=== PATIENT | male | born 1945 | race Caucasian/White ===

== ENCOUNTER → 2016-10-31 | Outpatient (CLI) | payer MEDICARE ==
--- NOTE | 2016-11-01 07:36 | ECHOF ---
Referral Reason:AFib I48.91 MEASUREMENTS -------- HEIGHT: 182.9 cm WEIGHT: 113.4 kg BP: 135/81 RVIDd: 2.9 cm (< 3.3) IVSd: 1.4 cm (0.6 - 1.1) LVIDd: 5.7 cm (3.9 - 5.3) LVPWd: 1.5 cm (0.6 - 1.1) IVSs: 1.8 cm LVIDs: 4.3 cm LVPWs: 2.1 cm LAESV Index (A-L): 49.40 ml/m Ao Diam: 3.7 cm (2.0 - 3.7) AV Cusp: 2.7 cm (1.5 - 2.6) LA Diam: 4.1 cm (2.7 - 3.8) MV EXCURSION: 22.646 mm (> 18.000) MV EF SLOPE: 128 mm/s (70 - 150) EPSS: 0.6 cm AR PHT: 365 ms RAP: 5.00 mmHg RVSP: 19.22 mmHg FINDINGS -------- Atrial fibrillation. This was a technically adequate study. There is moderate concentric left ventricular hypertrophy. Overall left ventricular systolic function is normal with, an EF between 60 - 65 %. Septal wall motion is delayed, and consistent with conduction delay/bundle branch block. The right ventricle is normal in size and function. LA is severely dilated >40 ml/m2 RA appears enlarged. There is mild aortic valve sclerosis. There is mild aortic regurgitation. There is no evidence of aortic stenosis. Mild mitral annular calcification present. There is trace to mild mitral regurgitation. Trace tricuspid regurgitation present. There is no evidence of pulmonary hypertension. The right ventricular systolic pressure, as measured by Doppler, is 19.22mmHg. Trace/mild (physiologic) pulmonic regurgitation. The aortic root size is normal. There is no pericardial effusion. CONCLUSIONS -------- 1. Atrial fibrillation. 2. There is trace to mild mitral regurgitation. 3. Trace tricuspid regurgitation present. 4. There is no evidence of pulmonary hypertension. 5. The right ventricular systolic pressure, as measured by Doppler, is 19.22mmHg. 6. Trace/mild (physiologic) pulmonic regurgitation. 7. The aortic root size is normal. 8. There is no pericardial effusion. 9. There is moderate concentric left ventricular hypertrophy. 10. Overall left ventricular systolic function is normal with, an EF between 60 - 65 %. 11. Septal wall motion is delayed, and consistent with conduction delay/bundle branch block. 12. LA is severely dilated >40 ml/m2 13. RA appears enlarged. 14. There is mild aortic valve sclerosis. 15. There is mild aortic regurgitation. 16. Mild mitral annular calcification present. DECORATING CONSULTANT: Mary Garcia RDCS
== END | disposition home or self-care (01) ==
LOC: RADECHMAIN 11:16
PROVIDERS: ATTEND Family Medicine
DX: I48.91 Unspecified atrial fibrillation (principal); I51.7 Cardiomegaly
CPT/HCPCS: 93306

== ENCOUNTER 2016-12-06 10:51 | Day surgery (SDC) | payer MEDICARE ==
[2016-12-01 15:27] VITALS: BMI 35.2
[~2016-12-06 10:51] MED LIST: BENZOCAINE SPRAY 100 APPLIC/CAN ONE; HYDROmorphone 1 MG/ML 1 ML SYRINGE IVP PRN; LACTATED RINGERS 1,000 ML IV SCH; LIDOCAINE 1% 20 ML VIAL (10MG/ML) FOR IV START INTRADERMA PRN; MIDAZOLAM 2 MG/2 ML VIAL IV PRN; ONDANSETRON 4 MG/2 ML VIAL IVP ONE; SODIUM CHLORIDE 0.9% 1,000 ML IV SCH
[2016-12-06 11:21] VITALS: RESP 16; TEMP 97.6
[2016-12-06] MEDS ORDERED: SODIUM CHLORIDE 0.9% 1,000 ML IV ONE (11:21)
[2016-12-06 11:34] LABS: Basophils % (A) 0 %; CH 32.7; CHCM 33.6; Eosinophils # (A) 0.1 k/uL (0-0.7); Eosinophils % (A) 2 %; HCT 48.8 % (39.0-53.0); HDW 2.52; HGB 15.9 gm/dL (13.0-17.5); Luc # (Auto) 0.19; Luc % (Auto) 3; Lymphocytes # (A) 1.5 k/uL (1.0-4.8); Lymphocytes % (A) 23 %; MCHC 32.7 g/dL (31.0-37.0); MCV 97.9 fL (80.0-100.0); Mean Platelet Volume 8.6; Monocytes # (A) 0.3 k/uL (0-1.0); Monocytes % (A) 5 %; Neutrophils # (A) 4.3 k/uL (1.3-7.7); Neutrophils % (A) 66 %; RBC 4.98 m/uL (4.30-5.90); RDW 14.1 % (11.5-15.5); WBC 6.5 k/uL (3.8-10.6); WBC (Perox) 6.06
[2016-12-06] MEDS ORDERED: LIDOCAINE 1% INJ 10MG/ML (20 ML MDV) ONE (12:00)
[2016-12-06] MEDS ORDERED: PROPOFOL 10 MG/ML 20 ML VIAL IV ONE (12:00)
[2016-12-06] MEDS ORDERED: BENZOCAINE SPRAY 100 APPLIC/CAN MUCOUS MEM ONE (12:02)
[2016-12-06 12:03] LABS: Basophils % (A) 0 %; CH 32.7; CHCM 33.2; Eosinophils # (A) 0.1 k/uL (0-0.7); Eosinophils % (A) 2 %; HDW 2.48; HGB 15.3 gm/dL (13.0-17.5); Luc # (Auto) 0.14; Luc % (Auto) 2; Lymphocytes # (A) 1.4 k/uL (1.0-4.8); Lymphocytes % (A) 24 %; MCH 32.2 pg (25.0-35.0); MCHC 32.5 g/dL (31.0-37.0); Mean Platelet Volume 8.6; Monocytes # (A) 0.3 k/uL (0-1.0); Monocytes % (A) 5 %; Neutrophils # (A) 4.1 k/uL (1.3-7.7); Neutrophils % (A) 67 %; RBC 4.75 m/uL (4.30-5.90); RDW 14.1 % (11.5-15.5); WBC (Perox) 5.84
[2016-12-06 12:20] LABS: Anion Gap 10 mmol/L; Blood Urea Nitrogen 16 mg/dL (9-20); Calcium 8.9 mg/dL (8.4-10.2); Carbon Dioxide 22 mmol/L (22-30); Chloride 109 mmol/L (98-107); Glucose 93 mg/dL (74-99); Non-African American GFR(MDRD) >60 (>60 ml/min/1.73 sqM); Potassium 4.5 mmol/L (3.5-5.1); Sodium 141 mmol/L (137-145)
[2016-12-06] MEDS ORDERED: LISINOPRIL 5 MG TAB PO SCH (12:30)
[2016-12-06] MEDS ORDERED: DEXTROSE 5% IN WATER 100 ML with AMIODARONE 150 MG IV ONE (12:45)
[2016-12-06] MEDS ORDERED: AMIODARONE 450 MG in DEXTROSE 5% IN WATER 250 ML IV SCH ×2 (13:00)
--- NOTE | 2016-12-06 13:09 | ECHOT ---
DATE OF SERVICE: Patient was given intravenous sedation with propofol by nurse educational aide and transesophageal echocardiogram was performed without any complications. FINDINGS: Left ventricular chamber is normal in size with mild to moderately impaired left ventricular systolic function. Aortic, mitral and tricuspid valve morphologies normal. There was evidence of mild degree of mitral and aortic regurgitation. Left atrium is mildly enlarged. There was evidence of smoke in the left atrium. Left atrial appendage was normal. There was no evidence of thrombus. There is evidence of small PFO with small [id number] shunt by saline contrast study. FINAL IMPRESSION: 1. There is no evidence of thrombus in the left atrium or atrial appendage. 2. Left ventricular systolic function is mildly impaired. 3. There is evidence of mild degree of mitral and tricuspid regurgitation. 4. There is evidence of small patent foramen ovale with a small [id number] shunt. RECOMMENDATIONS: Proceed with cardioversion.
--- NOTE | 2016-12-06 13:11 | CE ---
DATE OF SERVICE: PROCEDURE: CARDIOVERSION PREOPERATIVE DIAGNOSIS: Atrial fibrillation. POSTOPERATIVE DIAGNOSIS: Atrial fibrillation. The patient was given intravenous sedation with Propofol and cardioversion was performed in synchronous mode with 200 joules. Patient was converted to the normal sinus rhythm. Tolerated the procedure well. The patient will be given IV amiodarone infusion for 6 hours and then we will keep the patient on oral amiodarone to keep him in a normal sinus rhythm.
[2016-12-06] MEDS ORDERED: AMIODARONE 200 MG TAB PO SCH (16:00)
[2016-12-06 18:58] VITALS: BP 121/82; PULSE 57
== END 2016-12-07 00:30 | disposition home or self-care (01) ==
LOC: CATHCVL 10:51 → 6SEL 12:20 → CATHCVL 12-07 00:30
PROVIDERS: ATTEND Internal Medicine Cardiovascular Disease
DX: I48.1 Persistent atrial fibrillation (principal); I10 Essential (primary) hypertension; R00.1 Bradycardia, unspecified; I44.0 Atrioventricular block, first degree; R94.31 Abnormal electrocardiogram [ECG] [EKG]; Z79.01 Long term (current) use of anticoagulants; Z79.899 Other long term (current) drug therapy; Z87.891 Personal history of nicotine dependence
CPT/HCPCS: 93312; 93320; 93005; 93325; 92960; 80048; 85025; J0282 ×2; J2001; J2704

== ENCOUNTER 2016-12-10 12:04 | Emergency (ER) | payer MEDICARE ==
[2016-12-10] MEDS ORDERED: SODIUM CHLORIDE 0.9% 1,000 ML IV STA (12:56)
--- NOTE | 2016-12-10 13:00 | ED ---
SOB HPI - General Chief Complaint: Shortness of Breath Stated Complaint: POSS MEDICATION REACTION Time Seen by Provider: 12/10/16 12:46 Source: patient, family, RN notes reviewed Mode of arrival: ambulatory Limitations: no limitations - History of Present Illness Initial Comments: This is a 71-year-old male with a history of a cardioversion 4 days ago who presents with complaints of shortness of breath abdominal bloating and a cough since his occurred. He also states he started amiodarone and lisinopril of the same time. He relates the symptoms starting since Medications. No fevers chills nausea vomiting sweats or other symptoms MD Complaint: shortness of breath, cough - Related Data Home Medications Medication Instructions Recorded Confirmed Calcium Carbonate [Calcium] 600 mg PO DAILY 12/01/16 12/10/16 Flaxseed Oil [Hazel-3 Flaxseed Oil] 1,000 mg PO DAILY 12/01/16 12/10/16 Multivitamins, Thera [Multivitamin 1 tab PO DAILY 12/01/16 12/10/16 (formulary)] Hazel-3 Fatty Acids/Fish Oil [Fish 1 cap PO DAILY 12/01/16 12/10/16 Oil 1,000 mg Capsule] Previous Rx's Medication Instructions Recorded Amiodarone [Cordarone] 200 mg PO TID #100 tab 12/06/16 Apixaban [Eliquis] 5 mg PO BID #180 12/06/16 Lisinopril [Zestril] 5 mg PO DAILY #50 tab 12/06/16 Metoprolol Tartrate [Lopressor] 50 mg PO BID #180 12/06/16 Furosemide [Lasix] 10 mg PO DAILY #7 tab 12/10/16 Losartan [Cozaar] 50 mg PO DAILY #30 tab 12/10/16 Potassium Chloride ER [K-Dur 10] 10 meq PO DAILY #7 tab 12/10/16 Allergies Allergy/AdvReac Type Severity Reaction Status Date / Time No Known Allergies Allergy Verified 12/10/16 13:01 Review of Systems ROS Statement: Those systems with pertinent positive or pertinent negative responses have been documented in the HPI. ROS Other: All systems not noted in ROS Statement are negative. Past Medical History Past Medical History: Atrial Fibrillation Additional Past Medical History / Comment(s): states arrythmia History of Any Multi-Drug Resistant Organisms: None Reported Additional Past Surgical History / Comment(s): "RUPTURED UMBILICUS", CIRCUMCISION ADULT Past Anesthesia/Blood Transfusion Reactions: No Reported Reaction Past Psychological History: No Psychological Hx Reported Smoking Status: Never smoker Past Alcohol Use History: None Reported Past Drug Use History: None Reported - Past Family History Mother Family Medical History: No Reported History General Exam - General Exam Comments Initial Comments: Physical well-developed well-nourished awake alert oriented 3 male Limitations: no limitations General appearance: alert, in no apparent distress Head exam: Present: atraumatic, normocephalic, normal inspection Eye exam: Present: normal appearance, PERRL, EOMI. Absent: scleral icterus, conjunctival injection, periorbital swelling ENT exam: Present: normal exam, mucous membranes moist Neck exam: Present: normal inspection. Absent: tenderness, meningismus, lymphadenopathy Respiratory exam: Present: normal lung sounds bilaterally. Absent: respiratory distress, wheezes, rales, rhonchi, stridor Cardiovascular Exam: Present: normal rhythm, bradycardia, normal heart sounds. Absent: systolic murmur, diastolic murmur, rubs, gallop, clicks GI/Abdominal exam: Present: soft, normal bowel sounds. Absent: distended, tenderness, guarding, rebound, rigid Extremities exam: Present: normal inspection, full ROM, normal capillary refill. Absent: tenderness, pedal edema, joint swelling, calf tenderness Back exam: Present: normal inspection Neurological exam: Present: alert, oriented X3, CN II-XII intact Psychiatric exam: Present: normal affect, normal mood Skin exam: Present: warm, dry, intact, normal color. Absent: rash Course Vital Signs 12/10/16 12/10/16 12/10/16 12:31 15:45 16:15 Temperature 99.5 F Pulse Rate 54 L 60 56 L Respiratory 20 18 18 Rate Blood Pressure 163/76 148/67 160/75 O2 Sat by Pulse 98 96 97 Oximetry 12/10/16 16:37 Temperature Pulse Rate 53 L Respiratory 18 Rate Blood Pressure 137/60 O2 Sat by Pulse 96 Oximetry Medical Decision Making - Medical Decision Making Patient states was discussed with cardiology, Dr Stafford the patient was given IV Lasix and did improve markedly is no more shortness of breath. He'll be taken off his BRENT inhibitor placed on Cozaar. He is a follow-up with cardiology tomorrow. He is return if any issues or problems wall. We had a long discussion. - Lab Data Result diagrams: 12/10/16 13:28 12/10/16 13:28 Lab Results 12/10/16 12/10/16 12/10/16 Range/Units 13:28 13:28 13:28 WBC 9.8 (3.8-10.6) k/uL RBC 4.48 (4.30-5.90) m/uL Hgb 14.5 (13.0-17.5) gm/dL Hct 44.1 (39.0-53.0) % MCV 98.4 (80.0-100.0) fL MCH 32.4 (25.0-35.0) pg MCHC 32.9 (31.0-37.0) g/dL RDW 14.2 (11.5-15.5) % Plt Count 109 L (150-450) k/uL Neutrophils % 81 % Lymphocytes % 10 % Monocytes % 5 % Eosinophils % 2 % Basophils % 0 % Neutrophils # 8.0 H (1.3-7.7) k/uL Lymphocytes # 1.0 (1.0-4.8) k/uL Monocytes # 0.5 (0-1.0) k/uL Eosinophils # 0.2 (0-0.7) k/uL Basophils # 0.0 (0-0.2) k/uL PT (9.0-12.0) sec INR (<1.1) APTT (22.0-30.0) sec Sodium 142 (137-145) mmol/L Potassium 4.4 (3.5-5.1) mmol/L Chloride 109 H (98-107) mmol/L Carbon Dioxide 25 (22-30) mmol/L Anion Gap 8 mmol/L BUN 15 (9-20) mg/dL Creatinine 1.00 (0.66-1.25) mg/dL Est GFR (MDRD) Af Amer >60 (>60 ml/min/1.73 sqM) Est GFR (MDRD) Non-Af >60 (>60 ml/min/1.73 sqM) Glucose 91 (74-99) mg/dL Calcium 9.3 (8.4-10.2) mg/dL Magnesium 1.9 (1.6-2.3) mg/dL Total Bilirubin 1.1 (0.2-1.3) mg/dL AST 41 (17-59) U/L ALT 55 (21-72) U/L Alkaline Phosphatase 57 (38-126) U/L Total Creatine Kinase 237 H (55-170) U/L CK-MB (CK-2) 3.3 H* (0.0-2.4) ng/mL CK-MB (CK-2) Rel Index 1.4 Troponin I 0.041 H* (0.000-0.034) ng/mL NT-Pro-B Natriuret Pep pg/mL Total Protein 6.6 (6.3-8.2) g/dL Albumin 3.7 (3.5-5.0) g/dL 12/10/16 12/10/16 Range/Units 13:28 13:28 WBC (3.8-10.6) k/uL RBC (4.30-5.90) m/uL Hgb (13.0-17.5) gm/dL Hct (39.0-53.0) % MCV (80.0-100.0) fL MCH (25.0-35.0) pg MCHC (31.0-37.0) g/dL RDW (11.5-15.5) % Plt Count (150-450) k/uL Neutrophils % % Lymphocytes % % Monocytes % % Eosinophils % % Basophils % % Neutrophils # (1.3-7.7) k/uL Lymphocytes # (1.0-4.8) k/uL Monocytes # (0-1.0) k/uL Eosinophils # (0-0.7) k/uL Basophils # (0-0.2) k/uL PT 11.0 (9.0-12.0) sec INR 1.1 (<1.1) APTT 26.6 (22.0-30.0) sec Sodium (137-145) mmol/L Potassium (3.5-5.1) mmol/L Chloride (98-107) mmol/L Carbon Dioxide (22-30) mmol/L Anion Gap mmol/L BUN (9-20) mg/dL Creatinine (0.66-1.25) mg/dL Est GFR (MDRD) Af Amer (>60 ml/min/1.73 sqM) Est GFR (MDRD) Non-Af (>60 ml/min/1.73 sqM) Glucose (74-99) mg/dL Calcium (8.4-10.2) mg/dL Magnesium (1.6-2.3) mg/dL Total Bilirubin (0.2-1.3) mg/dL AST (17-59) U/L ALT (21-72) U/L Alkaline Phosphatase (38-126) U/L Total Creatine Kinase (55-170) U/L CK-MB (CK-2) (0.0-2.4) ng/mL CK-MB (CK-2) Rel Index Troponin I (0.000-0.034) ng/mL NT-Pro-B Natriuret Pep 1600 pg/mL Total Protein (6.3-8.2) g/dL Albumin (3.5-5.0) g/dL - EKG Data -: EKG Interpreted by Me EKG shows normal: sinus rhythm Rate: bradycardia (Sinus rhythm rate of 54. To 16 QRS 98 daily since QTC of 446 /422 prescribed AV block posterior inferior changes nonspecific) - Radiology Data Radiology results: report reviewed (I did review the imaging and report or some evidence of some mild CHF.), image reviewed Disposition Clinical Impression: Fluid retention, Adverse reaction to BRENT inhibitor drug, Congestive heart failure Disposition: HOME SELF-CARE Condition: Good Additional Instructions: Stop the lisinopril Prescriptions: Furosemide [Lasix] 10 mg PO DAILY #7 tab Losartan [Cozaar] 50 mg PO DAILY #30 tab Potassium Chloride ER [K-Dur 10] 10 meq PO DAILY #7 tab Referrals: Noah Little MD [Primary Care Provider] - 1-2 days Elly Pinzon MD [STAFF PHYSICIAN] - 1-2 days
[2016-12-10 13:45] LABS: Basophils % (A) 0 %; CH 32.5; CHCM 33.2; Eosinophils # (A) 0.2 k/uL (0-0.7); Eosinophils % (A) 2 %; HCT 44.1 % (39.0-53.0); HDW 2.45; HGB 14.5 gm/dL (13.0-17.5); Luc # (Auto) 0.21; Luc % (Auto) 2; Lymphocytes % (A) 10 %; MCH 32.4 pg (25.0-35.0); MCHC 32.9 g/dL (31.0-37.0); MCV 98.4 fL (80.0-100.0); Mean Platelet Volume 8.7; Monocytes # (A) 0.5 k/uL (0-1.0); Monocytes % (A) 5 %; Neutrophils % (A) 81 %; RBC 4.48 m/uL (4.30-5.90); RDW 14.2 % (11.5-15.5); WBC 9.8 k/uL (3.8-10.6); WBC (Perox) 9.25
--- NOTE | 2016-12-10 13:55 | XR ---
EXAMINATION TYPE: XR chest 2V DATE OF EXAM: 12/10/2016 COMPARISON: NONE HISTORY: Difficulty breathing TECHNIQUE: Frontal and lateral views of the chest are obtained. FINDINGS: The heart is enlarged. There are overlying cardiac leads. Interstitium is increased. Perih ilar increased density is noted. No evident pneumothorax or pleural effusion. IMPRESSION: Correlate for congestive heart failure. Follow-up recommended.
[2016-12-10 13:58] LABS: ALT 55 U/L (21-72); AST 41 U/L (17-59); Alkaline Phosphatase 57 U/L (38-126); Anion Gap 8 mmol/L; Blood Urea Nitrogen 15 mg/dL (9-20); Calcium 9.3 mg/dL (8.4-10.2); Carbon Dioxide 25 mmol/L (22-30); Chloride 109 mmol/L (98-107); Glucose 91 mg/dL (74-99); Magnesium 1.9 mg/dL (1.6-2.3); Non-African American GFR(MDRD) >60 (>60 ml/min/1.73 sqM); Potassium 4.4 mmol/L (3.5-5.1); Sodium 142 mmol/L (137-145); Total Bilirubin 1.1 mg/dL (0.2-1.3); Total Protein 6.6 g/dL (6.3-8.2)
[2016-12-10 14:08] LABS: INR 1.1 (<1.1); Partial Thromboplastin Time 26.6 sec (22.0-30.0)
[2016-12-10 14:28] LABS: Creatine Kinase MB 3.3 ng/mL (0.0-2.4)
[2016-12-10 14:29] LABS: Troponin I 0.041 ng/mL (0.000-0.034)
[2016-12-10] MEDS ORDERED: FUROSEMIDE 10 MG/ML 4 ML VIAL IV STA (15:39)
--- NOTE | 2016-12-10 16:51 | ED ---
Medical Decision Making - Lab Data Result diagrams: 12/10/16 13:28 12/10/16 13:28 Lab Results 12/10/16 12/10/16 12/10/16 Range/Units 13:28 13:28 13:28 WBC 9.8 (3.8-10.6) k/uL RBC 4.48 (4.30-5.90) m/uL Hgb 14.5 (13.0-17.5) gm/dL Hct 44.1 (39.0-53.0) % MCV 98.4 (80.0-100.0) fL MCH 32.4 (25.0-35.0) pg MCHC 32.9 (31.0-37.0) g/dL RDW 14.2 (11.5-15.5) % Plt Count 109 L (150-450) k/uL Neutrophils % 81 % Lymphocytes % 10 % Monocytes % 5 % Eosinophils % 2 % Basophils % 0 % Neutrophils # 8.0 H (1.3-7.7) k/uL Lymphocytes # 1.0 (1.0-4.8) k/uL Monocytes # 0.5 (0-1.0) k/uL Eosinophils # 0.2 (0-0.7) k/uL Basophils # 0.0 (0-0.2) k/uL PT (9.0-12.0) sec INR (<1.1) APTT (22.0-30.0) sec Sodium 142 (137-145) mmol/L Potassium 4.4 (3.5-5.1) mmol/L Chloride 109 H (98-107) mmol/L Carbon Dioxide 25 (22-30) mmol/L Anion Gap 8 mmol/L BUN 15 (9-20) mg/dL Creatinine 1.00 (0.66-1.25) mg/dL Est GFR (MDRD) Af Amer >60 (>60 ml/min/1.73 sqM) Est GFR (MDRD) Non-Af >60 (>60 ml/min/1.73 sqM) Glucose 91 (74-99) mg/dL Calcium 9.3 (8.4-10.2) mg/dL Magnesium 1.9 (1.6-2.3) mg/dL Total Bilirubin 1.1 (0.2-1.3) mg/dL AST 41 (17-59) U/L ALT 55 (21-72) U/L Alkaline Phosphatase 57 (38-126) U/L Total Creatine Kinase 237 H (55-170) U/L CK-MB (CK-2) 3.3 H* (0.0-2.4) ng/mL CK-MB (CK-2) Rel Index 1.4 Troponin I 0.041 H* (0.000-0.034) ng/mL NT-Pro-B Natriuret Pep pg/mL Total Protein 6.6 (6.3-8.2) g/dL Albumin 3.7 (3.5-5.0) g/dL 12/10/16 12/10/16 Range/Units 13:28 13:28 WBC (3.8-10.6) k/uL RBC (4.30-5.90) m/uL Hgb (13.0-17.5) gm/dL Hct (39.0-53.0) % MCV (80.0-100.0) fL MCH (25.0-35.0) pg MCHC (31.0-37.0) g/dL RDW (11.5-15.5) % Plt Count (150-450) k/uL Neutrophils % % Lymphocytes % % Monocytes % % Eosinophils % % Basophils % % Neutrophils # (1.3-7.7) k/uL Lymphocytes # (1.0-4.8) k/uL Monocytes # (0-1.0) k/uL Eosinophils # (0-0.7) k/uL Basophils # (0-0.2) k/uL PT 11.0 (9.0-12.0) sec INR 1.1 (<1.1) APTT 26.6 (22.0-30.0) sec Sodium (137-145) mmol/L Potassium (3.5-5.1) mmol/L Chloride (98-107) mmol/L Carbon Dioxide (22-30) mmol/L Anion Gap mmol/L BUN (9-20) mg/dL Creatinine (0.66-1.25) mg/dL Est GFR (MDRD) Af Amer (>60 ml/min/1.73 sqM) Est GFR (MDRD) Non-Af (>60 ml/min/1.73 sqM) Glucose (74-99) mg/dL Calcium (8.4-10.2) mg/dL Magnesium (1.6-2.3) mg/dL Total Bilirubin (0.2-1.3) mg/dL AST (17-59) U/L ALT (21-72) U/L Alkaline Phosphatase (38-126) U/L Total Creatine Kinase (55-170) U/L CK-MB (CK-2) (0.0-2.4) ng/mL CK-MB (CK-2) Rel Index Troponin I (0.000-0.034) ng/mL NT-Pro-B Natriuret Pep 1600 pg/mL Total Protein (6.3-8.2) g/dL Albumin (3.5-5.0) g/dL Disposition Clinical Impression: Fluid retention, Adverse reaction to BRENT inhibitor drug, Congestive heart failure Disposition: HOME SELF-CARE Condition: Good Instructions: Heart Failure (ED) Additional Instructions: Stop the lisinopril Prescriptions: Furosemide [Lasix] 10 mg PO DAILY #7 tab Losartan [Cozaar] 50 mg PO DAILY #30 tab Potassium Chloride ER [K-Dur 10] 10 meq PO DAILY #7 tab Referrals: Noah Little MD [Primary Care Provider] - 1-2 days Elly Pinzon MD [STAFF PHYSICIAN] - 1-2 days
[2016-12-10 17:11] VITALS: BP 141/68; PULSE 57; RESP 16; TEMP 98.7
== END 2016-12-10 17:11 | disposition home or self-care (01) ==
LOC: EC 12:04
DX: I50.9 Heart failure, unspecified (principal); R60.9 Edema, unspecified; T46.4X5A Adverse effect of angiotensin-converting-enzyme inhibitors, initial encounter; I44.30 Unspecified atrioventricular block; R14.0 Abdominal distension (gaseous); Z79.899 Other long term (current) drug therapy
CPT/HCPCS: 51798; 36415; 93005; 83880; 80053; 82550; 82553; 83735; 84484; 85025; 85610; 85730; 71020; 99285; 96374; 96361 ×3; J1940

== ENCOUNTER 2017-01-11 10:51 | Day surgery (SDC) | payer MEDICARE ==
[2017-01-08 16:06] VITALS: BMI 33.9
[~2017-01-11 10:51] MED LIST changes: +ALPRAZolam 0.25 MG TAB PO PRN; +ALPRAZolam 0.5 MG TAB PO PRN; +ASPIRIN 325 MG TAB PO STA; +ATORVASTATIN 80 MG TAB PO STA; -BENZOCAINE SPRAY 100 APPLIC/CAN ONE; -HYDROmorphone 1 MG/ML 1 ML SYRINGE IVP PRN; -LACTATED RINGERS 1,000 ML IV SCH; -LIDOCAINE 1% 20 ML VIAL (10MG/ML) FOR IV START INTRADERMA PRN; -MIDAZOLAM 2 MG/2 ML VIAL IV PRN; +NITROGLYCERIN SL TABS 0.4 MG TAB SUBLINGUAL PRN; -ONDANSETRON 4 MG/2 ML VIAL IVP ONE; -SODIUM CHLORIDE 0.9% 1,000 ML IV SCH; +SODIUM CHLORIDE 0.9% 1,000 ML in EMPTY BAG 1 BAG IV ONE
[2017-01-11 12:09] LABS: Basophils % (A) 1 %; CH 32.6; CHCM 33.7; Eosinophils # (A) 0.2 k/uL (0-0.7); Eosinophils % (A) 2 %; HDW 2.53; HGB 15.6 gm/dL (13.0-17.5); Luc # (Auto) 0.14; Luc % (Auto) 2; Lymphocytes # (A) 1.4 k/uL (1.0-4.8); Lymphocytes % (A) 22 %; MCH 32.2 pg (25.0-35.0); MCHC 33.2 g/dL (31.0-37.0); MCV 97.2 fL (80.0-100.0); Mean Platelet Volume 9.5; Monocytes # (A) 0.5 k/uL (0-1.0); Monocytes % (A) 7 %; Neutrophils # (A) 4.4 k/uL (1.3-7.7); Neutrophils % (A) 66 %; RBC 4.84 m/uL (4.30-5.90); RDW 14.9 % (11.5-15.5); WBC 6.6 k/uL (3.8-10.6); WBC (Perox) 6.29
[2017-01-11 12:17] LABS: Anion Gap 7 mmol/L; Blood Urea Nitrogen 19 mg/dL (9-20); Calcium 9.2 mg/dL (8.4-10.2); Carbon Dioxide 23 mmol/L (22-30); Chloride 110 mmol/L (98-107); Glucose 83 mg/dL (74-99); Non-African American GFR(MDRD) >60 (>60 ml/min/1.73 sqM); Sodium 140 mmol/L (137-145)
[2017-01-11] MEDS ORDERED: IV FLUID CONTINUATION 800 ML IV ONE (17:35)
[2017-01-11] MEDS ORDERED: LIDOCAINE 2% INJ 20 MG/ML (20 ML MDV) ONE (17:40)
[2017-01-11] MEDS ORDERED: VERAPAMIL 2.5 MG/ML 2 ML AMP ONE (17:41)
[2017-01-11] MEDS: MIDAZOLAM 2 MG/2 ML VIAL IV ONE ×2 (17:57→18:08)
[2017-01-11] MEDS ORDERED: diphenhydrAMINE 50 MG/ML 1 ML VIAL IVP ONE (17:59)
[2017-01-11] MEDS ORDERED: MIDAZOLAM 2 MG/2 ML VIAL ONE (17:59)
[2017-01-11] MEDS ORDERED: diphenhydrAMINE 50 MG/ML 1 ML VIAL ONE (18:00)
[2017-01-11] MEDS ORDERED: HEPARIN SODIUM 1,000 UN/ML (10ML VL) ONE (18:02)
[2017-01-11] MEDS ORDERED: LIDOCAINE 2% INJ 20 MG/ML SQ ONE (18:02)
[2017-01-11] MEDS: VERAPAMIL SYRINGE (5 MG/10 ML) IV ONE ×2 (18:05→18:14)
[2017-01-11] MEDS ORDERED: IOHEXOL 350 MG/ML 125ML BOTTLE INJ ONE (18:16)
[2017-01-11] MEDS ORDERED: RX INFO: IV CONTRAST WAS GIVEN 1 EACH MISC MISCELLANE PRN (18:18)
[2017-01-11] MEDS ORDERED: SODIUM CHLORIDE 0.9% 1,000 ML IV SCH (18:30)
[2017-01-11 19:06] VITALS: RESP 16; TEMP 98.2
[2017-01-11 22:22] VITALS: BP 135/65; PULSE 62
--- NOTE | 2017-01-12 11:55 | CC ---
DATE OF SERVICE: 01/11/17 PERFORMING PHYSICIAN: Boston Gomez M.D., professor of exercise science. PROCEDURE PERFORMED: 1. Selective right and left coronary angiogram. 2. Left heart catheterization. INDICATIONS: This is a pleasant 71 year old gentleman who sees Dr. Bhavesh Pinzon as an outpatient who I was requested to perform a heart catheterization from a radial approach. Apparently, the patient was diagnosed with cardiomyopathy with an ejection fraction around 35% and heart catheterization to rule out severe underlying coronary artery disease. APPROACH: Right radial artery. COMPLICATIONS: None. LEVEL OF SEDATION: Moderate. SEDATION LENGTH: 15 minutes. PROCEDURE DESCRIPTION: After obtaining informed consent, the patient was brought to the cardiac field laboratory operator. The right radial artery was cannulated using micropuncture technique. The micropuncture wire passed easily. Then, I placed a 6 [place] sheath in the right radial artery. Subsequently, I did selective right and left coronary angiogram using JR4 and JL3.5 catheters. Left heart catheterization was performed using the JR4 catheter which flowed into the LV and then I did pull back. The procedure was completed without any complications. SELECTIVE CORONARY ANGIOGRAM: 1. The right coronary artery is a large caliber vessel and it is a dominant vessel. It is angiographically normal. Distally bifurcates into PDA and PLV branches, both are angiographically normal. 2. The left main is angiographically normal. It bifurcates into the left circumflex and left anterior descending artery. 3. The left circumflex is a large caliber vessel and it is a nondominant vessel. The proximal left circumflex appears to be angiographically normal and gives rise into the first obtuse marginal branch which appears to be angiographically normal. The mid left circumflex is normal and gives rise into a second OM branch which seems to be angiographically normal. The left circumflex distally works as a third OM branch and seems to have mild disease only. 4. The left anterior descending coronary artery: The proximal LAD appeared to have mild disease only. The mid LAD also has mild disease only. This is just distal to the bifurcation of the first diag branch which is moderate caliber vessel with mild disease in the ostium. The LAD distally appeared to be angiographically normal. CONCLUSION: 1. Mild nonobstructive coronary artery disease involving the mid LAD. 2. Severe ischemic Cardiomyopathy. 3. Normal left ventricular end diastolic pressure. POSTPROCEDURE MANAGEMENT: 1. Medical treatment. 2. Follow-up with the patient. JOHN
== END 2017-01-11 23:00 | disposition home or self-care (01) ==
LOC: CATHCVL 10:51 → 3OBS 18:14 → CATHCVL 23:00
PROVIDERS: ATTEND Internal Medicine Interventional Cardiology
DX: I25.110 Atherosclerotic heart disease of native coronary artery with unstable angina pectoris (principal); I42.9 Cardiomyopathy, unspecified; I48.1 Persistent atrial fibrillation; Z87.891 Personal history of nicotine dependence; Z79.02 Long term (current) use of antithrombotics/antiplatelets; Z79.899 Other long term (current) drug therapy
CPT/HCPCS: 93458; 80048; 85025; 99152; C1769; C1894; J2001; J2250; J1200; J1644; Q9967

== ENCOUNTER → 2017-02-06 | Day surgery (SDC) | payer MEDICARE ==
[2017-02-05 08:52] VITALS: BMI 36.6
[~2017-02-06] MED LIST changes: -ALPRAZolam 0.25 MG TAB PO PRN; -ALPRAZolam 0.5 MG TAB PO PRN; -ASPIRIN 325 MG TAB PO STA; -ATORVASTATIN 80 MG TAB PO STA; +LIDOCAINE 1% INJ 10MG/ML (20 ML MDV) ONE; -NITROGLYCERIN SL TABS 0.4 MG TAB SUBLINGUAL PRN; +PROPOFOL 10 MG/ML 20 ML VIAL IV ONE; +SODIUM CHLORIDE 0.9% 1,000 ML IV SCH; -SODIUM CHLORIDE 0.9% 1,000 ML in EMPTY BAG 1 BAG IV ONE
[2017-02-06 07:58] VITALS: RESP 18
--- NOTE | 2017-02-06 09:33 | P.PCN ---
Preoperative Diagnosis: Procedure Electrical cardioversion for atrial fibrillation, patient has been amiodarone for greater than 2 months now Indication of the procedure Symptomatic persistent atrial fibrillation refractory to treatment Cardiomyopathy, nonischemic Procedure Successful electrical cardioversion with a single biphasic shock of 360 J to sinus bradycardia. Mild postconversion pause, initially heart rates were in the 30s and gradually improved into the high 40s with occasional PACs Plan Continue amiodarone 200 mg by mouth daily Stop metoprolol completely Hold beta blockers for 48 hours and start carvedilol 3.125 mg by mouth twice a day instead Follow-up 2-D echo and follow-up with Dr. VC Pinzon, for reassessment of LV function If refractory to drug therapy with amiodarone after these 2 months of loading then 1. Amiodarone should be discontinued 2. Consideration for either A. fib ablation or dofetilide therapy or a combination 3. Since he has been on amiodarone, prior to dofetilide loading he will need at least 2-3 months washout. Postoperative Diagnosis: Procedure(s) Performed: Implants: Disposition: same day Indications for Procedure: Operative Findings: Description of Procedure:
[2017-02-06 09:37] VITALS: TEMP 98
[2017-02-06 14:46] VITALS: BP 117/69; PULSE 48
== END ==
LOC: CATHEP 07:34
PROVIDERS: ATTEND Internal Medicine Clinical Cardiac Electrophysiology
DX: I48.1 Persistent atrial fibrillation (principal); I42.0 Dilated cardiomyopathy; I10 Essential (primary) hypertension; E78.5 Hyperlipidemia, unspecified; Z79.01 Long term (current) use of anticoagulants; Z79.899 Other long term (current) drug therapy
CPT/HCPCS: 93005; 92960; J2001; J2704

== ENCOUNTER 2017-07-02 06:02 | Day surgery (SDC) | payer MEDICARE ==
[2017-06-21 16:35] VITALS: BMI 33.9
[~2017-07-02 06:02] MED LIST changes: -LIDOCAINE 1% INJ 10MG/ML (20 ML MDV) ONE; -PROPOFOL 10 MG/ML 20 ML VIAL IV ONE
[2017-07-02] MEDS ORDERED: LACTATED RINGERS 1,000 ML IV SCH (06:18)
[2017-07-02] MEDS ORDERED: PROTAMINE SULFATE 10 MG/ML 5 ML VIAL IV ONE (07:23)
[2017-07-02] MEDS ORDERED: PHENYLEPHRINE-0.9% NACL SYG 1 MG/10 ML SYRINGE ONE (07:23)
[2017-07-02] MEDS ORDERED: ePHEDrine SULFATE/0.9% NACL/PF 50 MG/5 ML SYRINGE IV ONE (07:23)
[2017-07-02] MEDS ORDERED: ATROPINE SULFATE 0.1 MG/ML 10ML SYRINGE ONE (07:23)
[2017-07-02] MEDS ORDERED: PROPOFOL 10 MG/ML 20 ML VIAL IV ONE (07:23)
[2017-07-02] MEDS ORDERED: MIDAZOLAM 2 MG/2 ML VIAL ONE (07:23)
[2017-07-02] MEDS ORDERED: SUCCINYLCHOLINE CHLORIDE 100 MG/5 ML SYR IV ONE (07:23)
[2017-07-02] MEDS ORDERED: DEXAMETHASONE SOD PHOS (MDV) 100 MG/10 ML VIAL ONE (07:23)
[2017-07-02] MEDS ORDERED: LIDOCAINE 1% INJ 10MG/ML (20 ML MDV) ONE (07:23)
[2017-07-02] MEDS ORDERED: fentaNYL (PF) 50 MCG/ML 2 ML AMP ONE (07:23)
[2017-07-02] MEDS ORDERED: HEPARIN SODIUM,PORCINE 10,000 UNIT/ML 1 ML VIAL ONE (07:23)
[2017-07-02] MEDS ORDERED: ISOPROTERENOL 250 MCG/1.25 ML SYR IV ONE (07:23)
[2017-07-02] MEDS ORDERED: LIDOCAINE 2% INJ 20 MG/ML SQ ONE ×2 (08:20→08:25)
[2017-07-02] MEDS ORDERED: HEPARIN SOD,PORK IN 0.45% NACL 25,000 UNIT in 0.45% NACL 1 500ML.BAG IV ONE (08:28)
[2017-07-02] MEDS ORDERED: ACETAMINOPHEN IV (For NPO) 1,000 MG in EMPTY BAG 1 BAG IVPB ONE (10:31)
[2017-07-02] MEDS ORDERED: HYDROcodone/APAP 5-325MG 1 EACH TAB PO PRN (10:31)
[2017-07-02] MEDS ORDERED: ACETAMINOPHEN TAB 325 MG TAB PO PRN (10:31)
--- NOTE | 2017-07-02 11:04 | P.PCN ---
Preoperative Diagnosis: Procedures performed ([facility] - CRYO Ablation) Invasive hemodynamic monitoring while general anesthesia, right femoral arterial line for monitoring and sampling Comprehensive diagnostic EP study with attempted arrhythmia induction CS pacing and recording Drug infusion Catheter the mapping of the tachycardia (NOT 3D mapping) Intracardiac echocardiography Pulmonary vein isolation with transseptal and comprehensive EPS, [id number] Procedure details Patient was brought to the EP lab in a fasting state. Written informed consent was obtained prior to the procedure. Procedure performed under general anesthesia After initial muscle relaxant use, muscle relaxants were not given thereafter in order to assess phrenic nerve during procedure Patient prepped and draped as per protocol Full cryo-set up with standard preparation of the cryoablation tools done Femoral Venous access obtained on the right and left groins Sheaths placed Diagnostic catheters for the high right atrium, phrenic nerve stimulation and pacing, His bundle, RV and coronary sinus placed Intracardiac echo catheter placed Long sheath placed in the right atrium Left and right transseptal catheterization performed under intracardiac echo guidance Intravenous heparin with aCT above 300 Later, catheter positioning and balloon positioning under intracardiac echo Baseline measurements Sinus cycle length 1050 ms, QRS 115 and QT 410 ms. Baseline AH 86, HV 63 Comprehensive diagnostic EP study with drug infusion Atrial pacing performed from the high right atrium and the coronary sinus Patient was in atrial fibrillation the start of the study. Sinus node recovery times at 800 706 100 ms were 1340, 1271 and 1. Milliseconds. AV node Wenckebach block for 20 ms VA Wenckebach block greater than 800 ms On Isuprel, AV node Wenckebach block for 20 ms and VA Wenckebach block 600 ms Transseptal catheterization performed RA pressure 18/14/16 LA pressure is 32/14/20 Transseptal catheterization performed with standard sheath. The cryoablation sheath was then placed with an over the wire exchange without any acute complications. All 4 pulmonary veins were isolated in the following sequence: Left superior followed by left inferior followed by right superior followed by right inferior The cryo-ablation balloon was placed at the os of each vein 1.5 mL of IV dye was injected to confirm an occluded vein Goal during cryoablation was to achieve -30C in the first 30 seconds. If not the balloon was repositioned to obtain this result After completion of Cryoblation with durations from 180-240 seconds, entrance block was confirmed with the Attain circular catheter in a roving fashion around the antrum of the pulmonary veins Phrenic nerve pacing was performed from the SVC, right innominate vein area and diaphragm voltage was monitored as well as manually Parameter goals for each cryo freeze -30C by 30 seconds -40C by 60 seconds Mediated between minus 40-55 Thaw time greater than 10 seconds Balloon visualized by intracardiac echo to ensure that the proximal one third was within the left atrium/antrum Left superior pulmonary vein 2 cryo lesions 160 seconds and 90 seconds, complete isolation Left middle pulmonary vein 2 cryo oblations, 150 seconds and 65 seconds, complete isolation Left inferior pulmonary vein 2 cryo lesions 104 seconds and 90 seconds, complete isolation Right superior pulmonary vein, during phrenic nerve pacing single lesion 116 seconds complete isolation of rapid pulmonary vein tachycardia Phrenic nerve paresis developed and therefore cryo ablation terminated. Full recovery within 10-15 minutes Earliest sign was reduction in amplitude of the diaphragmatic signal while diaphragmatic contraction was maintained Right inferior pulmonary vein, during phrenic nerve pacing Not done on account of phrenic nerve paresis during cryoablation of the right. Pulmonary vein Electrical cardioversion, 360 J biphasic shock, single shock was successfully in converting the patient to sinus/junctional rhythm IV atropine given At the end of the procedure the Achieve catheter was once again used to check for entrance block Phrenic nerve stimulation was performed to confirm diaphragmatic stimulation the end of the procedure Cine fluoroscopy was performed at the very end of the procedure to confirm movement of both diaphragms with inspiration and expiration At the end of the procedure the patient was extubated Heparin was reversed Venous sheaths were removed and hemostasis assured Result Successful pulmonary vein isolation using cryo-ablation of the left superior, left middle and left inferior and right superior. Organization and cycle lengths slowing of atrial fibrillation during cryo Right inferior pulmonary vein not ablated Complete entrance block in ablated veins confirmed Transient phrenic nerve paresis within 116 seconds of cryoablation of the right superior pulmonary vein, recovery within 10-15 minutes Dilated left atrium, large pulmonary veins Plan Reassess with low-dose flecainide and proceed with RF ablation on the right- sided veins as well as linear ablation of the roof for management of symptomatic persistent atrial fibrillation that was previously associated with cardiomyopathy Anesthesia: GETA Condition: stable Disposition: floor
[2017-07-02] MEDS: CEPHALEXIN 500 MG CAP PO SCH ×2 (15:44→23:24)
[2017-07-02] MEDS: FLECAINIDE 50 MG TAB PO SCH (20:37)
[2017-07-02] MEDS: APIXABAN 5 MG TAB PO SCH (20:37)
[2017-07-03 08:47] VITALS: BP 116/69; PULSE 58; RESP 16; TEMP 97.5
[2017-07-03] MEDS: CEPHALEXIN 500 MG CAP PO SCH (08:51)
[2017-07-03] MEDS: FLECAINIDE 50 MG TAB PO SCH (08:52)
[2017-07-03] MEDS: APIXABAN 5 MG TAB PO SCH (08:52)
[2017-07-03] MEDS ORDERED: LOSARTAN 50 MG TAB PO SCH (09:00)
--- NOTE | 2017-07-03 11:49 | P.DS ---
Providers Attending physician: Fredrick Salcedo Primary care physician: [facility] Course: Patient is doing well from a cardiac standpoint. He underwent right ablation of the pulmonary veins yesterday. His groins have healed well there is no hematoma no swelling no pain. He's been walking up and down the hallways. No chest pain no breathing trouble no cough expectoration. On examination his blood pressures 116/69 mmHg respirations 14-16 him a nonlabored, pulse rate in the 50s, afebrile Impression Persistent atrial fibrillation, symptomatic and associated with cardiomyopathy Status post cryoablation Transient phrenic nerve paresis during cryoablation of the right superior pulmonary vein in about 116 seconds Plan Patient's LV function is improved with rate control and therefore he is now on low-dose flecainide. He will continue degranulation and if he has recurrent atrial fibrillation we will proceed with EP study RFA disCharge home today lifelong anticoagulation Follow Dr. Coles in 1-2 weeks Plan - Discharge Summary Discharge Rx Participant: No New Discharge Prescriptions: New Metoprolol Succinate (ER) [Toprol XL] 50 mg PO DAILY #30 tab Discontinued Metoprolol Succinate (ER) [Toprol Xl] 100 mg PO DAILY No Action Multivitamins, Thera [Multivitamin (formulary)] 1 tab PO DAILY Apixaban [Eliquis] 5 mg PO BID #180 Losartan [Cozaar] 50 mg PO DAILY #30 tab Calcium Carbonate/Vitamin D3 [Calcium 600-Vit D3 2,500 Sftgl] 1 each PO DAILY Fish Oil/Dha/Epa [Fish Oil 1,200 mg Fish Oil] 1 each PO QAM Flax Seen(Dose Unknown) 1 tab PO QAM Plant Stanol Shama [Cholest Off] 900 mg PO DAILY Flecainide [Tambocor] 50 mg PO Q12HR Cephalexin [Keflex] 500 mg PO Q8HR Discharge Medication List Multivitamins, Thera [Multivitamin (formulary)] 1 tab PO DAILY 12/01/16 [History ] Apixaban [Eliquis] 5 mg PO BID #180 12/06/16 [Rx] Losartan [Cozaar] 50 mg PO DAILY #30 tab 12/10/16 [Rx] Calcium Carbonate/Vitamin D3 [Calcium 600-Vit D3 2,500 Sftgl] 1 each PO DAILY [History] Fish Oil/Dha/Epa [Fish Oil 1,200 mg Fish Oil] 1 each PO QAM 06/21/17 [History] Flax Seen(Dose Unknown) 1 tab PO QAM 06/21/17 [History] Plant Stanol Shama [Cholest Off] 900 mg PO DAILY 06/21/17 [History] Cephalexin [Keflex] 500 mg PO Q8HR 07/02/17 [History] Flecainide [Tambocor] 50 mg PO Q12HR 07/02/17 [History] Metoprolol Succinate (ER) [Toprol XL] 50 mg PO DAILY #30 tab 07/02/17 [Rx] Follow up Appointment(s)/Referral(s): Fredrick Salcedo MD [STAFF PHYSICIAN] - 2 Weeks Elly Pinzon MD [STAFF PHYSICIAN] - As Needed (Office will call you with follow up appointment. Notified of Chery's procedure date and wanting to get in before the .) Patient Instructions/Handouts: Cardiac Ablation (DC) Activity/Diet/Wound Care/Special Instructions: Post EP study - Ablation instructions 1. Keep access sites dry for 2 days. 2. No heavy lifting or straining for 2 days. 3. Avoid bending the hips repeatedly for 2 days. 4. You may go up and down stairs slowly Call if the following is noted 1. Bleeding, increasing swelling or pain at the access sites. 2. Increasing chest discomfort, especially upon taking a deep breath. 3. Increasing shortness of breath, at rest or with exertion. 4. Undue cough / phlegm 5. Difficulty or pain while swallowing. 6. Pain or change in color in the extremities. 7. Fever, chills, rigors. 8. Increasing headache or neurologic symptoms. 9. Dizziness, fainting, palpitations Follow-up with Dr. salcedo within 2 weeks Reduce metoprolol to succinate dose to 50 mg by mouth daily. Patient already has 100 mg tablet. He should be instructed to break it in half and take it once daily in the morning I'm not prescribing a 50 mg tablet at this time, as an outpatient he will be reassessed to see if he can tolerate a full 100 mg once again while he is in sinus rhythm Do not stop ELIQUIS or losartan Discharge Disposition: HOME SELF-CARE
== END 2017-07-03 13:00 | disposition home or self-care (01) ==
LOC: CATHEP 06:02 → 6SEL 10:32 → CATHEP 07-03 13:00
PROVIDERS: ATTEND Internal Medicine Clinical Cardiac Electrophysiology
DX: I48.1 Persistent atrial fibrillation (principal); I44.0 Atrioventricular block, first degree; I45.10 Unspecified right bundle-branch block; I42.9 Cardiomyopathy, unspecified; I25.10 Atherosclerotic heart disease of native coronary artery without angina pectoris; Z79.01 Long term (current) use of anticoagulants; Z79.899 Other long term (current) drug therapy; Z87.891 Personal history of nicotine dependence
CPT/HCPCS: 92960; 93662; 93609; 93656; C1894 ×3; C1769 ×4; C1730 ×4; C1759; C1893; C1733; C1766; J2001 ×2; J2250; J2720; J1644 ×2; J0461; J3010; J1100; J0131; J2370; J0330; J2704

== ENCOUNTER 2020-05-20 12:12 | Day surgery (SDC) | payer MEDICARE ==
[2020-05-18 11:34] VITALS: BMI 34.5
[~2020-05-20 12:12] MED LIST changes: +HYDROmorphone 0.5 MG/0.5 ML SYRINGE IVP PRN; +LACTATED RINGERS 1,000 ML IV SCH; +MIDAZOLAM 2 MG/2 ML VIAL IV PRN; +ONDANSETRON 4 MG/2 ML VIAL IVP ONE
[2020-05-20] MEDS ORDERED: SODIUM CHLORIDE 0.9% 1,000 ML IV ONE (12:46)
[2020-05-20] MEDS ORDERED: LIDOCAINE 1% INJ 10MG/ML (20 ML MDV) ONE ×2 (16:09→16:14)
[2020-05-20] MEDS ORDERED: SUCCINYLCHOLINE CHLORIDE 100 MG/5 ML SYR IV ONE (16:14)
[2020-05-20] MEDS ORDERED: fentaNYL (PF) 50 MCG/ML 2 ML AMP ONE (16:14)
[2020-05-20] MEDS ORDERED: PHENYLEPHRINE-0.9% NACL SYG 1 MG/10 ML SYRINGE ONE (16:14)
[2020-05-20] MEDS ORDERED: GLYCOPYRROLATE 0.2 MG/ML 2 ML VIAL ONE (16:14)
[2020-05-20] MEDS ORDERED: NEOSTIGMINE 1 MG/ML 10 ML VIAL ONE (16:14)
[2020-05-20] MEDS ORDERED: ROCURONIUM 10 MG/ML (10 ML VIAL) IV ONE (16:14)
[2020-05-20] MEDS ORDERED: PROPOFOL 10 MG/ML 20 ML VIAL IV ONE (16:14)
[2020-05-20] MEDS ORDERED: MIDAZOLAM 2 MG/2 ML VIAL ONE (16:14)
[2020-05-20] MEDS ORDERED: PROTAMINE SULFATE 10 MG/ML 5 ML VIAL IV ONE ×2 (16:14→20:49)
[2020-05-20] MEDS ORDERED: FUROSEMIDE 10 MG/ML 2 ML VIAL ONE (16:14)
[2020-05-20] MEDS ORDERED: HEPARIN SODIUM,PORCINE 10,000 UNIT/ML 1 ML VIAL ONE (16:14)
[2020-05-20] MEDS ORDERED: HEPARIN SODIUM,PORCINE 5,000 UNIT/ML 1 ML VIAL ONE (16:14)
[2020-05-20] MEDS ORDERED: HEPARIN SODIUM (1,000 UNIT/ML) 1,000 UNIT in SODIUM CHLORIDE 0.9% 1,000 ML IRRIGATION ONE ×5 (16:46→19:58)
[2020-05-20] MEDS ORDERED: LIDOCAINE 1% INJ 10MG/ML (20 ML MDV) SQ ONE (16:58)
[2020-05-20] MEDS ORDERED: HEPARIN SOD,PORK IN 0.45% NACL 25,000 UNIT in 0.45% NACL 1 250ML.BAG IV ONE (19:58)
[2020-05-20] MEDS ORDERED: LACTATED RINGERS 1,000 ML IV ONE (20:46)
[2020-05-20] MEDS ORDERED: ACETAMINOPHEN IV (For NPO) 1,000 MG in EMPTY BAG 1 BAG IVPB ONE (20:53)
[2020-05-20] MEDS ORDERED: HYDROcodone/APAP 5-325MG 1 EACH TAB PO PRN (20:53)
[2020-05-20] MEDS ORDERED: FUROSEMIDE 10 MG/ML 4 ML VIAL ONE (20:56)
--- NOTE | 2020-05-20 21:47 | CE ---
CARDIAC ELECTROPHYSIOLOGY REPORT Irineo Peña is a 75-year-old male patient who came in with atrial tachycardia. He has a history of atrial fibrillation. He has undergone cryoablation of the pulmonary veins, but on account of paresis, the right-sided pulmonary veins were not ablated completely. The left-sided veins were completely isolated. Patient was brought to the EP lab in a fasting state. Written informed consent was obtained prior to the procedure. The procedure was performed under general anesthesia. Patient was in tachycardia at the start of the study. Venous sheaths were placed in the right and left femoral veins, and via these diagnostic catheters, mapping catheters and intracardiac echo catheter were placed. Later mapping ablation catheters were placed. Intracardiac echocardiography revealed a small pericardial effusion on the posterior LV; none over the RV. Interatrial septum was identified. Left atrial appendage was identified. No intracardiac mass or thrombus was noted. Left and right transseptal catheterization was performed. RA pressure 14 x 9 x 11 mmHg. LA pressure 19 x 9 x 13 mmHg. Following that, sheath was placed in the left atrium and a PentaRay catheter was placed. The patient was in tachycardia. Tachycardia cycle length was 244 milliseconds and 3D electroanatomic mapping was performed. A broad area of activation was noted in the posterior septum just posterior to the transseptal puncture. The left-sided veins were completely isolated at ostial level. Right-sided veins were obviously not isolated. The patient had very large pulmonary veins as well as an extremely dilated left atrium. An RF ablation catheter was placed and a wide [place] antral isolation around the right- sided veins was performed with complete isolation of the veins. The short diameter was 3.4 cm and the long diameter was 5.5 cm for this [place] antral isolation. This was the longest part of the procedure, simply on account of the size of the left atrium, and therefore careful attention had to be paid to catheter stability. We were able to get good catheter stability with good power and complete isolation of the right- sided pulmonary veins at a very antral/atrial level. However, the tachycardia continued despite this. Next, the right atrium was mapped. Three-dimensional electroanatomic mapping of the right atrium revealed counter-clockwise flutter. However, the EKG was not suggestive of counter-clockwise flutter. Entrainment mapping was also performed to prove this. Cavotricuspid isthmus ablation was performed. This was a long isthmus once again, and the tachycardia were terminated during RF ablation. Following that, the entire cavotricuspid isthmus underwent successful ablation and a complete line of block was made. Following that, the line was interrogated with pacing maneuvers and bidirectional block was proven. The isthmus conduction time was 214 milliseconds. However, please note that the patient was on flecainide 50 mg twice daily and had a very enlarged right and left atrium. Following that, a diagnostic EP study was performed. AV node Wenckebach block 480 milliseconds, VA Wenckebach block greater than 600 milliseconds. Sinus node recovery time at a paced cycle length of 600 milliseconds was 1642 milliseconds. QRS 106 milliseconds. NV interval 260 milliseconds. Sinus cycle length 1367 milliseconds. AH interval 196 milliseconds, HV interval 63 milliseconds. PLAN: 1. Continue Eliquis. 2. Stop flecainide completely and hold metoprolol completely. 3. Continue antihypertensive therapy with losartan. The patient tolerated the procedure well without any acute complications. MMODL / IJN: [id number] /
[2020-05-20] MEDS: APIXABAN 5 MG TAB PO SCH (22:55)
[2020-05-21] MEDS: ACETAMINOPHEN TAB 325 MG TAB PO PRN ×2 (02:32→09:35)
[2020-05-21 02:38] VITALS: RESP 18
--- NOTE | 2020-05-21 07:53 | P.DS ---
Providers Attending physician: Fredrick Salcedo Primary care physician: [facility] Course: Hayden is doing well. He is ambulating in the room No chest discomfort dizziness lightheadedness throat no palpitations His rhythm is regular His NV interval is improved heart rates improved after metoprolol and flecainide were discontinued yesterday On examination Afebrile 97.5, pulse rate in the 60s and 70s Blood pressure 107/67 mmHg normal breath sounds No rhonchi no crackles Normal heart sounds normal S1 normal S2 Groins of healed well No hematoma or swelling No lower extremity edema No JVD Impression A. fib ablation with pulmonary vein isolation with a wide [place] antral is olation of the right-sided veins He is undergone cryoablation of the left-sided veins but the cryoablation procedure for the right-sided veins was prematurely terminated on account of ventricular paresis His current [place]ie covered line pulmonary was completely isolated However he remained in the atrial tachycardia and this turned out to be typical atrial flutter Dilated left atrium Dilated right atrium Small pleural effusion, posterior LV of no hemodynamic significance noted PRIOR TO starting the procedure He underwent successful atrial flutter ablation with resumption of sinus rhythm Underlying sinus bradycardia with a prolonged NV interval and therefore flecainide and metoprolol was stopped He is taking flecainide 25 mg 3 times a day and flecainide 50 g twice daily prior to this At this time I would hold both flecainide and metoprolol and reassess the need for low dose metoprolol after one to 2 weeks He is on ELIQUIS which she will continue he is on losartan hypertension which she will continue Follow-up 2-D echo and Doppler study in 6-8 weeks to evaluate the pericardial effusion Plan - Discharge Summary Discharge Rx Participant: Yes New Discharge Prescriptions: No Action RX: Multivitamins, Thera [Multivitamin (formulary)] 1 tab PO DAILY RX: Apixaban [Eliquis] 5 mg PO BID #180 RX: Losartan [Cozaar] 50 mg PO DAILY #30 tab Flax Seen(Dose Unknown) 1 tab PO QAM Flecainide [Tambocor] 50 mg PO Q12HR Calcium(Dose Unknown) 1 tab PO DAILY Zinc(Dose Unknown) 1 tab PO DAILY Metoprolol Succinate [Toprol XL] 25 mg PO TID Pravastatin Sodium [Pravachol] 40 mg PO DAILY Discharge Medication List RX: Multivitamins, Thera [Multivitamin (formulary)] 1 tab PO DAILY 12/01/16 [History] RX: Apixaban [Eliquis] 5 mg PO BID #180 12/06/16 [Rx] RX: Losartan [Cozaar] 50 mg PO DAILY #30 tab 12/10/16 [Rx] Flax Seen(Dose Unknown) 1 tab PO QAM 06/21/17 [History] Flecainide [Tambocor] 50 mg PO Q12HR 07/02/17 [History] Calcium(Dose Unknown) 1 tab PO DAILY 05/18/20 [History] Metoprolol Succinate [Toprol XL] 25 mg PO TID 05/18/20 [History] Pravastatin Sodium [Pravachol] 40 mg PO DAILY 05/18/20 [History] Zinc(Dose Unknown) 1 tab PO DAILY 05/18/20 [History]
--- NOTE | 2020-05-21 07:57 | P.PRLE ---
RE: Irineo Peña Dear Catrachito Blake underwent wide [place] pulmonary vein isolation on the right-sided veins As you remember a few years back he underwent cryoablation. The left-sided veins were completely isolated of the right-sided veins were not isolated completely on account of transient phrenic nerve paresis secondary to cryoablation Yesterday the right-sided veins are completely isolated with RF ablation He was also in typical atrial flutter and he underwent successful atrial flutter ablation with termination He has a very large left and right atrium and a small stable pericardial effusion that is noted PRIOR TO starting the ablation, noted on intracardiac echo He also has underlying sinus bradycardia with a prolonged [place] interval on flecainide and metoprolol and therefore I was asked him to hold both flecainide and metoprolol He will continue ELIQUIS and I will follow up with this very small pericardial effusion, the reason for this is unclear to me at this time Thank you for entrusting me with the care of the patient Warm regards Sincerely Fredrick Salcedo
[2020-05-21 08:59] VITALS: BP 110/57; PULSE 78; TEMP 97.8
[2020-05-21] MEDS ORDERED: LOSARTAN 50 MG TAB PO SCH (09:00)
[2020-05-21] MEDS ORDERED: PRAVASTATIN SODIUM 40 MG TAB PO SCH (09:00)
[2020-05-21] MEDS: APIXABAN 5 MG TAB PO SCH (09:34)
== END 2020-05-21 12:42 | disposition home or self-care (01) ==
LOC: CATHEP 12:12 → 1SOBS 22:16 → CATHEP 05-21 12:42
PROVIDERS: ATTEND Internal Medicine Clinical Cardiac Electrophysiology
DX: I47.1 Supraventricular tachycardia (principal); I48.19 Other persistent atrial fibrillation; I48.3 Typical atrial flutter; I44.0 Atrioventricular block, first degree; I42.8 Other cardiomyopathies; I11.9 Hypertensive heart disease without heart failure; E78.5 Hyperlipidemia, unspecified; J90 Pleural effusion, not elsewhere classified; Z79.01 Long term (current) use of anticoagulants; Z79.899 Other long term (current) drug therapy; Z98.890 Other specified postprocedural states
CPT/HCPCS: 85347; 93662; 93613; 93656; 93657; C1769 ×4; C1894; C1730; C1731; C1759; C1893; C1732; J2250; J2720; J1644 ×4; J1940 ×2; J2710; J2001; J3010; J0131; J2370; J0330; J2704

== ENCOUNTER 2020-06-17 13:24 | Observation (INO) | payer MEDICARE ==
[2020-06-17] MEDS ORDERED: SODIUM CHLORIDE 0.9% 1,000 ML IV STA (13:47)
[2020-06-17] MEDS ORDERED: DILTIAZEM DRIP BOLUS FROM BAG 1 MG SOLN IV ONE (13:47)
--- NOTE | 2020-06-17 13:51 | ED ---
General Adult HPI - General Chief complaint: Arrhythmia/Palpitations Stated complaint: Tachycardia Time Seen by Provider: 06/17/20 13:38 Source: patient, family, RN notes reviewed Mode of arrival: ambulatory Limitations: no limitations - History of Present Illness Initial comments: Patient is a pleasant 75-year-old male presenting to the emergency Department with complaints of palpitations. Patient did have some symptoms in the middle the night and again after he went for his walk today. Patient did check his heart rate and was elevated around 140. Patient called cardiology who told him to take a metoprolol and return if symptoms continued. Patient states symptoms are minimal. No dyspnea or pain. Patient does have history of similar problem previously and did have an ablation done a few weeks ago. May 22. Patient also had ablation done several years ago for atrophic ablation. Patient is unclear why his recent ablation was done. - Related Data Home Medications Medication Instructions Recorded Confirmed Multivitamins, Thera [Multivitamin 1 tab PO DAILY 12/01/16 05/20/20 (formulary)] Flax Seen(Dose Unknown) 1 tab PO QAM 06/21/17 05/20/20 Flecainide [Tambocor] 50 mg PO Q12HR 07/02/17 05/18/20 Calcium(Dose Unknown) 1 tab PO DAILY 05/18/20 05/20/20 Metoprolol Succinate [Toprol XL] 25 mg PO TID 05/18/20 05/20/20 Pravastatin Sodium [Pravachol] 40 mg PO DAILY 05/18/20 05/20/20 Zinc(Dose Unknown) 1 tab PO DAILY 05/18/20 05/20/20 Previous Rx's Medication Instructions Recorded Apixaban [Eliquis] 5 mg PO BID #180 12/06/16 Losartan [Cozaar] 50 mg PO DAILY #30 tab 12/10/16 Allergies Allergy/AdvReac Type Severity Reaction Status Date / Time No Known Allergies Allergy Verified 06/17/20 13:37 Review of Systems ROS Statement: Those systems with pertinent positive or pertinent negative responses have been documented in the HPI. ROS Other: All systems not noted in ROS Statement are negative. Constitutional: Denies: fever Eyes: Denies: eye pain ENT: Denies: ear pain Respiratory: Denies: cough Cardiovascular: Reports: palpitations. Denies: chest pain Endocrine: Denies: fatigue Gastrointestinal: Denies: abdominal pain Genitourinary: Denies: dysuria Musculoskeletal: Denies: back pain Skin: Denies: rash Neurological: Denies: weakness Past Medical History Past Medical History: Hearing Disorder / Deafness, Skin Disorder Additional Past Medical History / Comment(s): rash since 1963 on lower abdomen and buttock, see Dr Denisse FarrellP, gout, History of Any Multi-Drug Resistant Organisms: None Reported Past Surgical History: Cardiac Ablation, Heart Catheterization Additional Past Surgical History / Comment(s): "RUPTURED UMBILICUS", CIRCUMCISION ADULT, cardioversion x 2, Past Anesthesia/Blood Transfusion Reactions: No Reported Reaction Past Psychological History: No Psychological Hx Reported Smoking Status: Never smoker Past Alcohol Use History: Rare Past Drug Use History: None Reported - Past Family History Mother Family Medical History: No Reported History Additional Family Medical History / Comment(s): . Father Additional Family Medical History / Comment(s): cirrhosis General Exam Limitations: no limitations General appearance: alert, in no apparent distress Head exam: Present: normocephalic Eye exam: Present: normal appearance Neck exam: Present: normal inspection Respiratory exam: Present: normal lung sounds bilaterally Cardiovascular Exam: Present: tachycardia Expanded Peripheral pulses: 2+: Radial (R), Radial (L), Posterior Tibialis (R), Posterior Tibialis (L) GI/Abdominal exam: Present: soft. Absent: tenderness Extremities exam: Present: normal inspection. Absent: pedal edema, calf tenderness Neurological exam: Present: alert Psychiatric exam: Present: normal affect, normal mood Skin exam: Present: normal color Course Vital Signs 06/17/20 06/17/20 06/17/20 13:33 14:34 14:37 Temperature 98.0 F Pulse Rate 138 H 135 H Pulse Rate [ 135 H [place] ] Respiratory 20 18 Rate Blood Pressure 126/82 114/95 O2 Sat by Pulse 97 97 Oximetry 06/17/20 14:48 Temperature Pulse Rate 135 H Pulse Rate [ [place] ] Respiratory 16 Rate Blood Pressure 128/93 O2 Sat by Pulse 97 Oximetry EKG Findings - EKG Comments: EKG Findings:: Neuro Tachycardia with a rate of 138. MO 128. QRS 100. QT 338. QTC 512. Right axis. Inferior Q waves. No acute ST change. Medical Decision Making - Medical Decision Making Patient reevaluated and resting comfortably in bed. Heart rate remains 134. Patient and family updated results and plan. Case discussed with Dr. Fletcher, who will admit for Dr. Harrison, who admits for Dr. palma. Patient was started on Cardizem drip. Patient is already anticoagulated. - Lab Data Result diagrams: 06/17/20 13:59 06/17/20 13:59 Lab Results 06/17/20 06/17/20 06/17/20 Range/Units 13:59 13:59 13:59 WBC 7.6 (3.8-10.6) k/uL RBC 4.72 (4.30-5.90) m/uL Hgb 15.2 (13.0-17.5) gm/dL Hct 44.8 (39.0-53.0) % MCV 94.9 (80.0-100.0) fL MCH 32.1 (25.0-35.0) pg MCHC 33.8 (31.0-37.0) g/dL RDW 12.9 (11.5-15.5) % Plt Count 136 L (150-450) k/uL MPV 9.0 Neutrophils % 73 % Lymphocytes % 16 % Monocytes % 5 % Eosinophils % 3 % Basophils % 1 % Neutrophils # 5.6 (1.3-7.7) k/uL Lymphocytes # 1.2 (1.0-4.8) k/uL Monocytes # 0.4 (0-1.0) k/uL Eosinophils # 0.3 (0-0.7) k/uL Basophils # 0.1 (0-0.2) k/uL PT 10.4 (9.0-12.0) sec INR 1.0 (<1.2) APTT 26.4 (22.0-30.0) sec Sodium 139 (137-145) mmol/L Potassium 4.4 (3.5-5.1) mmol/L Chloride 109 H (98-107) mmol/L Carbon Dioxide 24 (22-30) mmol/L Anion Gap 6 mmol/L BUN 17 (9-20) mg/dL Creatinine 0.79 (0.66-1.25) mg/dL Est GFR (CKD-EPI)AfAm >90 (>60 ml/min/1.73 sqM) Est GFR (CKD-EPI)NonAf 88 (>60 ml/min/1.73 sqM) Glucose 118 H (74-99) mg/dL Calcium 9.2 (8.4-10.2) mg/dL Magnesium 2.0 (1.6-2.3) mg/dL Total Bilirubin 0.7 (0.2-1.3) mg/dL AST 36 (17-59) U/L ALT 28 (4-49) U/L Alkaline Phosphatase 54 (38-126) U/L Total Protein 6.8 (6.3-8.2) g/dL Albumin 3.9 (3.5-5.0) g/dL - Radiology Data Radiology results: image reviewed (Chest x-ray shows no acute process) Critical Care Time Critical Care Time: Yes Total Critical Care Time: 32 Disposition Clinical Impression: Atrial flutter with rapid ventricular response Disposition: ADMITTED IP TO THIS HOSP Is patient prescribed a controlled substance at d/c from ED?: No Referrals: Noah Palma MD [Primary Care Provider] - 1-2 days Decision Time: 14:54
[2020-06-17 14:33] LABS: Partial Thromboplastin Time 26.4 sec (22.0-30.0); Prothrombin Time 10.4 sec (9.0-12.0)
[2020-06-17] MEDS: DILTIAZEM 125 MG in SODIUM CHLORIDE 0.9% 100 ML IV SCH ×2 (14:34→16:43)
[2020-06-17 14:38] LABS: Basophils # (A) 0.1 k/uL (0-0.2); Basophils % (A) 1 %; Eosinophils # (A) 0.3 k/uL (0-0.7); Eosinophils % (A) 3 %; HCT 44.8 % (39.0-53.0); HGB 15.2 gm/dL (13.0-17.5); Lymphocytes # (A) 1.2 k/uL (1.0-4.8); Lymphocytes % (A) 16 %; MCH 32.1 pg (25.0-35.0); MCHC 33.8 g/dL (31.0-37.0); MCV 94.9 fL (80.0-100.0); Monocytes # (A) 0.4 k/uL (0-1.0); Monocytes % (A) 5 %; Neutrophils # (A) 5.6 k/uL (1.3-7.7); Neutrophils % (A) 73 %; Platelet Count 136 k/uL (150-450); RBC 4.72 m/uL (4.30-5.90); RDW 12.9 % (11.5-15.5); WBC 7.6 k/uL (3.8-10.6)
[2020-06-17 14:41] LABS: ALT 28 U/L (4-49); AST 36 U/L (17-59); African American GFR (CKD) >90 (>60 ml/min/1.73 sqM); Albumin 3.9 g/dL (3.5-5.0); Alkaline Phosphatase 54 U/L (38-126); Anion Gap 6 mmol/L; Blood Urea Nitrogen 17 mg/dL (9-20); Calcium 9.2 mg/dL (8.4-10.2); Carbon Dioxide 24 mmol/L (22-30); Chloride 109 mmol/L (98-107); Glucose 118 mg/dL (74-99); Non-African American GFR(CKD) 88 (>60 ml/min/1.73 sqM); Potassium 4.4 mmol/L (3.5-5.1); Sodium 139 mmol/L (137-145); Total Bilirubin 0.7 mg/dL (0.2-1.3); Total Protein 6.8 g/dL (6.3-8.2)
--- NOTE | 2020-06-17 14:47 | XR ---
EXAMINATION TYPE: XR chest 1V portable DATE OF EXAM: 06/17/2020 COMPARISON: 12/10/2016 INDICATION: Dysrhythmia TECHNIQUE: Frontal views of the chest are obtained. FINDINGS: The heart size is normal. The pulmonary vasculature is normal. The lungs are clear. IMPRESSION: 1. No acute pulmonary process.
[2020-06-17 14:55] LABS: T4, Free (Free Thyroxine) 0.93 ng/dL (0.78-2.19)
[2020-06-17] MEDS ORDERED: NALOXONE 0.4 MG/ML 1 ML VIAL IV PRN (14:55)
[2020-06-17] MEDS ORDERED: METOPROLOL SUCCINATE (ER) 25 MG TAB.ER.24H PO PRN (18:01)
[2020-06-17] MEDS: APIXABAN 5 MG TAB PO SCH (18:31)
[2020-06-18] MEDS: DILTIAZEM 125 MG in SODIUM CHLORIDE 0.9% 100 ML IV SCH (02:59)
--- NOTE | 2020-06-18 08:54 | P.CRDCN ---
History of Present Illness Consult date: 06/18/20 Chief complaint: Heart racing History of present illness: This is a very pleasant 75-year-old gentleman who sees Dr. Salcedo in the office on regular basis with a past medical history significant for paroxysmal atrial fibrillation as well as atrial tachycardia who underwent several years ago left sided pulmonary vein isolation and few weeks ago right-sided pulmonary veins ablation as well as atrial flutter ablation presented to the hospital complaining of heart racing and fluttering. The patient was in his usual state of health until yesterday when he developed symptoms of heart racing and fluttering without any dizziness or lightheadedness and without any syncope and also without any symptoms of chest pain or chest discomfort. He called the information analyst procedure and he was advised to take metoprolol but because he continues to be symptomatic he presented to the emergency department. When he underwent the ablation and because of bradycardia and first-degree AV block the metoprolol as well as flecainide were stopped. The patient was seen this morning. He stated that he is feeling better. He continues to be an atrial tachycardia with controlled heart rate on Cardizem drip at 10 mg per hour and also on metoprolol 25 mg by mouth twice a day. He would like to go go home. The EKG showed atrial tachycardia. The first set of troponin came in to be slightly elevated but probably related to tachycardia. The patient underwent a heart catheterization in 2017 and that showed normal coronaries. I am going to wean the patient from the Cardizem drip and increase the dose of metoprolol and if the heart rate continues to be under good control he possibly can be discharged home and sees Dr. Salcedo in as an outpatient. The patient case was discussed also with Dr. Salcedo this morning. Past Medical History Past Medical History: Hearing Disorder / Deafness, Skin Disorder Additional Past Medical History / Comment(s): rash since 1963 on lower abdomen and buttock, see Dr Salcedo H&P, gout, History of Any Multi-Drug Resistant Organisms: None Reported Past Surgical History: Cardiac Ablation, Heart Catheterization Additional Past Surgical History / Comment(s): "RUPTURED UMBILICUS", CIR CUMCISION ADULT, cardioversion x 2, Past Anesthesia/Blood Transfusion Reactions: No Reported Reaction Past Psychological History: No Psychological Hx Reported Smoking Status: Never smoker Past Alcohol Use History: Rare Past Drug Use History: None Reported - Past Family History Mother Family Medical History: No Reported History Additional Family Medical History / Comment(s): . Father Additional Family Medical History / Comment(s): cirrhosis Medications and Allergies Home Medications Medication Instructions Recorded Confirmed Type Multivitamins, Thera [Multivitamin 1 tab PO DAILY 12/01/16 06/17/20 History (formulary)] Apixaban [Eliquis] 5 mg PO BID #180 12/06/16 06/17/20 Rx Losartan [Cozaar] 50 mg PO DAILY #30 tab 12/10/16 06/17/20 Rx Metoprolol Succinate [Toprol XL] 25 mg PO ONCE PRN 05/18/20 06/17/20 History Pravastatin Sodium [Pravachol] 40 mg PO DAILY 05/18/20 06/17/20 History Calcium/Vitamin D3(Unknown) 1 tab PO DAILY 06/17/20 06/17/20 History Cyanocobalamin (Vitamin B-12) 1,000 mcg PO DAILY 06/17/20 06/17/20 History [Vitamin B-12] Fish Oil/Dha/Epa [Fish Oil 1,200 1 cap PO DAILY 06/17/20 06/17/20 History mg Fish Oil] Flaxseed Oil 1200mg 1 cap PO DAILY 06/17/20 06/17/20 History Allergies Allergy/AdvReac Type Severity Reaction Status Date / Time No Known Allergies Allergy Verified 06/17/20 15:37 Physical Exam Vitals: Vital Signs Temp Pulse Pulse Resp BP BP Pulse Ox 06/18/20 03:26 97.6 F 65 16 111/67 93 L 06/18/20 00:00 97.6 F 80 16 131/67 96 06/17/20 20:00 97.7 F 91 16 130/61 97 06/17/20 16:00 134 H 122/80 97 06/17/20 15:00 134 H 16 128/93 97 06/17/20 14:48 135 H 16 128/93 97 06/17/20 14:37 135 H 18 114/95 97 06/17/20 14:34 135 H 06/17/20 13:33 98.0 F 138 H 20 126/82 97 Intake and Output 06/17/20 06/18/20 06/18/20 22:59 06:59 14:59 Intake Total 258.084 102.667 240 Output Total 650 770 Balance -391.916 -667.333 240 Intake: Intake, IV Titration 18.084 102.667 Amount Diltiazem 125 mg In 18.084 102.667 Sodium Chloride 0.9% 100 ml @ 5 MG/HR 5 mls/hr IV .Q24H [facility] Rx#:[id number] Oral 240 240 Output: Urine 650 770 Other: Voiding Method Toilet Urinal Weight 117.934 kg 119.2 kg - Constitutional General appearance: no acute distress - Respiratory Respiratory: bilateral: CTA - Cardiovascular Rhythm: irregularly irregular Heart sounds: normal: S1, S2 Results 06/17/20 13:59 06/17/20 13:59 Cardiac Enzymes 06/17/20 06/17/20 Range/Units 13:59 13:59 AST 36 (17-59) U/L Troponin I 0.039 H* (0.000-0.034) ng/mL Coagulation 06/17/20 Range/Units 13:59 PT 10.4 (9.0-12.0) sec APTT 26.4 (22.0-30.0) sec CBC 06/17/20 Range/Units 13:59 WBC 7.6 (3.8-10.6) k/uL RBC 4.72 (4.30-5.90) m/uL Hgb 15.2 (13.0-17.5) gm/dL Hct 44.8 (39.0-53.0) % Plt Count 136 L (150-450) k/uL Comprehensive Metabolic Panel 06/17/20 Range/Units 13:59 Sodium 139 (137-145) mmol/L Potassium 4.4 (3.5-5.1) mmol/L Chloride 109 H (98-107) mmol/L Carbon Dioxide 24 (22-30) mmol/L BUN 17 (9-20) mg/dL Creatinine 0.79 (0.66-1.25) mg/dL Glucose 118 H (74-99) mg/dL Calcium 9.2 (8.4-10.2) mg/dL AST 36 (17-59) U/L ALT 28 (4-49) U/L Alkaline Phosphatase 54 (38-126) U/L Total Protein 6.8 (6.3-8.2) g/dL Albumin 3.9 (3.5-5.0) g/dL Current Medications Generic Name Dose Route Start Last Admin Trade Name Freq PRN Reason Stop Dose Admin Apixaban 5 mg 06/17/20 21:00 06/17/20 18:31 Apixaban 5 Mg Tab PO 5 mg BID OLYA Administration Calcium Carbonate 1 each 06/18/20 09:00 Calcium Carb-Vit D 500mg-200un 1 Each Tab PO DAILY OLYA Cyanocobalamin 1,000 mcg 06/18/20 09:00 Cyanocobalamin 500 Mcg Tab PO DAILY OLYA Sodium Chloride 1,000 mls @ 50 mls/hr 06/17/20 13:47 06/17/20 14:20 Saline 0.9% IV 06/18/20 09:46 50 mls/hr .Q20H STA Administration Diltiazem HCl 125 mg/ Sodium 125 mls @ 5 mls/hr 06/17/20 14:30 06/18/20 02:59 Chloride IV 10 mg/hr .Q24H OLYA 10 mls/hr Administration 5 MG/HR Losartan Potassium 50 mg 06/18/20 09:00 Losartan 50 Mg Tab PO DAILY OLYA Metoprolol Succinate 25 mg 06/17/20 18:01 06/17/20 18:31 Metoprolol Succinate (Er) 25 Mg Tab.Er.24h PO 25 mg ONCE PRN Administration HIGH BP Multivitamins 1 each 06/18/20 09:00 Multivitamins, Thera 1 Each Tab PO DAILY [facility] Naloxone HCl 0.2 mg 06/17/20 14:55 Naloxone 0.4 Mg/Ml 1 Ml Vial IV Q2M PRN Opioid Reversal Non-Formulary Medication 1 cap 06/18/20 09:00 Fish Oil/Dha/Epa [Fish Oil 1,200 Mg Fish Oil] PO DAILY [facility] Non-Formulary Medication 1 cap 06/18/20 09:00 Flaxseed Oil 1200mg PO DAILY [facility] Pravastatin Sodium 40 mg 06/18/20 09:00 Pravastatin Sodium 40 Mg Tab PO DAILY [facility] Intake and Output 06/17/20 06/18/20 06/18/20 22:59 06:59 14:59 Intake Total 258.084 102.667 240 Output Total 650 770 Balance -391.916 -667.333 240 Intake: Intake, IV Titration 18.084 102.667 Amount Diltiazem 125 mg In 18.084 102.667 Sodium Chloride 0.9% 100 ml @ 5 MG/HR 5 mls/hr IV .Q24H [facility] Rx#:[id number] Oral 240 240 Output: Urine 650 770 Other: Voiding Method Toilet Urinal Weight 117.934 kg 119.2 kg 06/17/20 13:59 06/17/20 13:59 Assessment and Plan Assessment: Assessment #1 atrial tachycardia #2 paroxysmal atrial fibrillation/atrial flutter Plan #1 wean the patient from the Cardizem drip #2 continue oral anticoagulation #3 increase the dose of metoprolol #4 the patient possibly can be discharged home
[2020-06-18] MEDS ORDERED: FLECAINIDE 50 MG TAB PO STA (08:55)
[2020-06-18] MEDS: CALCIUM CARB-VIT D 500MG-200UN 1 EACH TAB PO SCH (09:48)
[2020-06-18] MEDS: MULTIVITAMINS, THERA 1 EACH TAB PO SCH (09:48)
[2020-06-18] MEDS: LOSARTAN 50 MG TAB PO SCH (09:48)
[2020-06-18] MEDS: FLAXSEED OIL 1200 MG PO SCH (09:49)
[2020-06-18] MEDS: PRAVASTATIN SODIUM 40 MG TAB PO SCH (09:49)
[2020-06-18] MEDS: APIXABAN 5 MG TAB PO SCH ×3 (09:49→20:50)
[2020-06-18] MEDS: METOPROLOL SUCCINATE (ER) 25 MG TAB.ER.24H PO SCH ×2 (09:49→20:50)
[2020-06-18] MEDS: NON FORMULARY DRUG (Fish Oil/Dha/Epa [Fish Oil 1,200 Mg Fish Oil] 1 EACH Capsule) PO SCH (09:49)
[2020-06-18] MEDS: CYANOCOBALAMIN 500 MCG TAB PO SCH (09:49)
--- NOTE | 2020-06-18 15:58 | P.HPIM ---
History of Present Illness H&P Date: 06/18/20 Chief Complaint: Palpitation This is a 75-year-old pleasant male seen and evaluated examined on the cardiovascular floor patient came into the hospital with ongoing palpitations started 1 night before, there were intermittent associated with chest pain heart rate went up to 140, patient follows cardiovascular services notified them dose of metoprolol has been escalated, patient has been on flecainide metoprolol tartrate and Pravachol for atrial fibrillation hypertension hypertensive cardiovascular disease and dyslipidemia also on direct anticoagulants Review of Systems All systems: negative Past Medical History Past Medical History: Hearing Disorder / Deafness, Skin Disorder Additional Past Medical History / Comment(s): rash since 1963 on lower abdomen and buttock, see Dr Salcedo H&P, gout, History of Any Multi-Drug Resistant Organisms: None Reported Past Surgical History: Cardiac Ablation, Heart Catheterization Additional Past Surgical History / Comment(s): "RUPTURED UMBILICUS", CIRCUMCISION ADULT, cardioversion x 2, Past Anesthesia/Blood Transfusion Reactions: No Reported Reaction Past Psychological History: No Psychological Hx Reported Smoking Status: Never smoker Past Alcohol Use History: Rare Past Drug Use History: None Reported - Past Family History Mother Family Medical History: No Reported History Additional Family Medical History / Comment(s): . Father Additional Family Medical History / Comment(s): cirrhosis Medications and Allergies Home Medications Medication Instructions Recorded Confirmed Type Multivitamins, Thera [Multivitamin 1 tab PO DAILY 12/01/16 06/17/20 History (formulary)] Apixaban [Eliquis] 5 mg PO BID #180 12/06/16 06/17/20 Rx Losartan [Cozaar] 50 mg PO DAILY #30 tab 12/10/16 06/17/20 Rx Metoprolol Succinate [Toprol XL] 25 mg PO ONCE PRN 05/18/20 06/17/20 History Pravastatin Sodium [Pravachol] 40 mg PO DAILY 05/18/20 06/17/20 History Calcium/Vitamin D3(Unknown) 1 tab PO DAILY 06/17/20 06/17/20 History Cyanocobalamin (Vitamin B-12) 1,000 mcg PO DAILY 06/17/20 06/17/20 History [Vitamin B-12] Fish Oil/Dha/Epa [Fish Oil 1,200 1 cap PO DAILY 06/17/20 06/17/20 History mg Fish Oil] Flaxseed Oil 1200mg 1 cap PO DAILY 06/17/20 06/17/20 History Allergies Allergy/AdvReac Type Severity Reaction Status Date / Time No Known Allergies Allergy Verified 06/17/20 15:37 Physical Exam Vitals: Vital Signs Temp Pulse Resp BP Pulse Ox 06/18/20 12:00 97.6 F 103 H 16 113/73 97 06/18/20 09:00 98.2 F 96 16 134/64 96 06/18/20 03:26 97.6 F 65 16 111/67 93 L 06/18/20 00:00 97.6 F 80 16 131/67 96 06/17/20 20:00 97.7 F 91 16 130/61 97 06/17/20 16:00 134 H 122/80 97 Intake and Output 06/18/20 06/18/20 06/18/20 06:59 14:59 22:59 Intake Total 102.667 490 Output Total 770 Balance -667.333 490 Intake: IV 10 Invasive Line 1 10 Intake, IV Titration 102.667 Amount Diltiazem 125 mg In 102.667 Sodium Chloride 0.9% 100 ml @ 5 MG/HR 5 mls/hr IV .Q24H [facility] Rx#:[id number] Oral 480 Output: Urine 770 Other: Voiding Method Urinal # Voids 1 Weight 119.2 kg - Constitutional General appearance: average body habitus, cooperative - EENT Eyes: PERRLA Ears: bilateral: normal - Neck Neck: normal ROM Carotids: bilateral: upstroke normal Thyroid: bilateral: normal size - Respiratory Respiratory: bilateral: CTA - Cardiovascular Rhythm: irregularly irregular Heart sounds: normal: S1, S2 - Gastrointestinal General gastrointestinal: normal bowel sounds - Neurologic Neurologic: CNII-XII intact - Musculoskeletal Musculoskeletal: gait normal, generalized weakness, strength equal bilaterally - Psychiatric Psychiatric: A&O x's 3, appropriate affect, intact judgment & insight Results CBC & Chem 7: 06/17/20 13:59 06/17/20 13:59 Thrombosis Risk Factor Assmnt - Choose All That Apply Each Factor Represents 1 point: Obesity (BMI >25) Each Risk Factor Represents 3 Points: Age 75 years or older Thrombosis Risk Factor Assessment Total Risk Factor Score: 4 Thrombosis Risk Factor Assessment Level: Moderate Risk Assessment and Plan Assessment: Palpitation due to atrial flutter and atrial fibrillation Paroxysmal atrial fibrillation Hypertension and hypertensive cardiovascular disease Dyslipidemia Plan: Overall plan is to monitor patient on IV Cardizem Continued direct oral contrast anticoagulants Cardiovascular consult for adjustment of medications Other recommendations pending plan of care as per clinical response of patient Time with Patient: Greater than 30
[2020-06-19] MEDS: APIXABAN 5 MG TAB PO SCH (06:11)
[2020-06-19] MEDS: NON FORMULARY DRUG (Fish Oil/Dha/Epa [Fish Oil 1,200 Mg Fish Oil] 1 EACH Capsule) PO SCH (08:57)
[2020-06-19] MEDS: FLAXSEED OIL 1200 MG PO SCH (08:57)
[2020-06-19] MEDS: CALCIUM CARB-VIT D 500MG-200UN 1 EACH TAB PO SCH (09:00)
[2020-06-19] MEDS: METOPROLOL SUCCINATE (ER) 25 MG TAB.ER.24H PO SCH (09:00)
[2020-06-19] MEDS: MULTIVITAMINS, THERA 1 EACH TAB PO SCH (09:00)
[2020-06-19] MEDS: LOSARTAN 50 MG TAB PO SCH (09:00)
[2020-06-19] MEDS: CYANOCOBALAMIN 500 MCG TAB PO SCH (09:00)
[2020-06-19] MEDS: PRAVASTATIN SODIUM 40 MG TAB PO SCH (09:00)
--- NOTE | 2020-06-19 09:50 | P.PN ---
Subjective Progress Note Date: 06/19/20 Principal diagnosis: Paroxysmal atrial fibrillation/supraventricular tachycardia This is a very pleasant 75-year-old gentleman who sees Dr. Salcedo in the office on regular basis with a past medical history significant for paroxysmal atrial fibrillation as well as atrial tachycardia who underwent several years ago left sided pulmonary vein isolation and few weeks ago right-sided pulmonary veins ablation as well as atrial flutter ablation presented to the hospital complaining of heart racing and fluttering. The patient was in his usual state of health until yesterday when he developed symptoms of heart racing and fluttering without any dizziness or lightheadedness and without any syncope and also without any symptoms of chest pain or chest discomfort. He called the credit administration manager procedure and he was advised to take metoprolol but because he continues to be symptomatic he presented to the emergency department. When he underwent the ablation and because of bradycardia and first-degree AV block the metoprolol as well as flecainide were stopped. The patient was seen today 06/19/2020. He remains in atrial tachycardia. He is in process of having cardioversion later on today. The procedure will be performed by Dr. Salcedo. The procedure in details was explained to the patient. Meanwhile will continue the current medical regimen including oral anticoagulation. Objective - Vital Signs Vital signs: Vital Signs Temp 97.6 F 06/19/20 04:00 Pulse 124 H 06/19/20 04:00 Resp 16 06/19/20 04:00 BP 113/77 06/19/20 04:00 Pulse Ox 96 06/19/20 04:00 Intake & Output 06/18/20 06/19/20 06/19/20 18:59 06:59 18:59 Intake Total 730 Output Total 400 Balance 730 -400 Weight 117.3 kg Intake: IV 10 Invasive Line 1 10 Oral 720 Output: Urine 400 Other: Voiding Method Urinal # Voids 1 1 - Constitutional General appearance: Present: no acute distress - Respiratory Respiratory: bilateral: CTA - Cardiovascular Rhythm: irregularly irregular Heart sounds: normal: S1, S2 - Labs CBC & Chem 7: 06/17/20 13:59 06/17/20 13:59 Assessment and Plan Assessment: Assessment #1 atrial tachycardia #2 paroxysmal atrial fibrillation/atrial flutter Plan #1 continue the current medical regimen #2 continue oral anticoagulation #3 proceed with cardioversion later on today
[2020-06-19] MEDS ORDERED: LIDOCAINE 1% INJ 10MG/ML (20 ML MDV) ONE (10:45)
[2020-06-19] MEDS ORDERED: PROPOFOL 10 MG/ML 20 ML VIAL IV ONE (10:45)
[2020-06-19] MEDS ORDERED: SODIUM CHLORIDE 0.9% 1,000 ML IV ONE (10:46)
--- NOTE | 2020-06-19 11:17 | P.EPPROC ---
- EP Procedure Note Electrophysiology Procedure Note: Diagnosis Post A. fib ablation atrial tachycardia with 2-1 AV block and RVR despite medical treatment Patient anticoagulated with ELIQUIS Patient is status post PVI and atrial flutter ablation with termination of tachycardia He had a wide [place] antral isolation on the right side and cryoablation on the left-sided veins followed by typical atrial flutter ablation Dilated right atrium Procedure Electrical cardioversion Details 200 J biphasic shock in the AP configuration converted the patient in sinus rhythm in the 80s Occasional PACs
[2020-06-19 11:18] VITALS: RESP 16
[2020-06-19] MEDS ORDERED: FLECAINIDE 50 MG TAB PO SCH (11:30)
--- NOTE | 2020-06-19 14:33 | P.PN ---
Subjective Progress Note Date: 06/19/20 Principal diagnosis: Palpitation due to atrial flutter and atrial fibrillation Paroxysmal atrial fibrillation Hypertension and hypertensive cardiovascular disease Dyslipidemia 06/19/2019, patient seen and evaluated examined overall respiratory status remains stable patient is being monitored, cardiovascular services have arranged P study, This is a 75-year-old pleasant male seen and evaluated examined on the cardiovascular floor patient came into the hospital with ongoing palpitations started 1 night before, there were intermittent associated with chest pain heart rate went up to 140, patient follows cardiovascular services notified them dose of metoprolol has been escalated, patient has been on flecainide metoprolol tartrate and Pravachol for atrial fibrillation hypertension hypertensive cardiovascular disease and dyslipidemia also on direct anticoagulants Objective - Vital Signs Vital signs: Vital Signs Temp 97.2 F L 06/19/20 12:15 Pulse 76 06/19/20 12:15 Resp 16 06/19/20 12:15 BP 128/77 06/19/20 12:15 Pulse Ox 94 L 06/19/20 12:15 Intake & Output 06/18/20 06/19/20 06/19/20 18:59 06:59 18:59 Intake Total 730 900 Output Total 400 Balance 730 -400 900 Weight 117.3 kg Intake: IV 10 Invasive Line 1 10 Oral 720 900 Output: Urine 400 Other: Voiding Method Urinal # Voids 1 1 - Exam - Constitutional General appearance: average body habitus, cooperative - EENT Eyes: PERRLA Ears: bilateral: normal - Neck Neck: normal ROM Carotids: bilateral: upstroke normal Thyroid: bilateral: normal size - Respiratory Respiratory: bilateral: CTA - Cardiovascular Rhythm: irregularly irregular Heart sounds: normal: S1, S2 - Gastrointestinal General gastrointestinal: normal bowel sounds - Neurologic Neurologic: CNII-XII intact - Musculoskeletal Musculoskeletal: gait normal, generalized weakness, strength equal bilaterally - Psychiatric Psychiatric: A&O x's 3, appropriate affect, intact judgment & insight - Labs CBC & Chem 7: 06/17/20 13:59 06/17/20 13:59 Assessment and Plan Assessment: Palpitation due to atrial flutter and atrial fibrillation Paroxysmal atrial fibrillation Hypertension and hypertensive cardiovascular disease Dyslipidemia Plan: EP study by EP service Overall plan is to monitor patient on IV Cardizem Continued direct oral contrast anticoagulants Cardiovascular consult for adjustment of medications Other recommendations pending plan of care as per clinical response of patient Time with Patient: Greater than 30
[2020-06-19 17:16] VITALS: BP 116/78; PULSE 74; TEMP 98.2
[2020-06-20] MEDS ORDERED: METOPROLOL SUCCINATE (ER) 25 MG TAB.ER.24H PO SCH (09:00)
== END 2020-06-19 17:51 | disposition home or self-care (01) ==
LOC: EC 13:24 → 3SCARD 15:01
PROVIDERS: ADMIT Internal Medicine Sleep Medicine; ATTEND Internal Medicine Sleep Medicine
DX: I47.1 Supraventricular tachycardia (principal); I48.0 Paroxysmal atrial fibrillation; I48.92 Unspecified atrial flutter; I11.9 Hypertensive heart disease without heart failure; H91.90 Unspecified hearing loss, unspecified ear; M10.9 Gout, unspecified; Z98.890 Other specified postprocedural states; Z83.79 Family history of other diseases of the digestive system; Z79.01 Long term (current) use of anticoagulants; Z79.899 Other long term (current) drug therapy
CPT/HCPCS: 96366 ×3; 93005 ×4; 96376; 96365; 99285; 36415; 92960; 84439; 84481; 80053; 83735; 84443; 84484; 85025; 85610; 85730; 71045; G0378 ×3; J2001; J2704

== ENCOUNTER → 2020-12-22 | Outpatient (CLI) | payer MEDICARE ==
--- NOTE | 2020-12-22 17:59 | CONS ---
CONSULTATION DATE OF SERVICE: 12/22/2020 75-year-old gentleman has been evaluated in the sleep center for possible obstructive sleep apnea-hypopnea syndrome. HISTORY OF PRESENT ILLNESS/SLEEP WAKE EVALUATION: Patient's usual sleep schedule from 9 p.m. to 6 a.m. 7 days a week. No problems with falling asleep. No TV in bedroom. He sleeps in the chair on the side position. He wakes up from sleep once with nocturia. According to his , he snores loudly and has episodes of awakenings with choking, dry mouth, palpitation, heartburn, gasping for air, sleep talking. During the day, patient has problems with memory, irritability, sexual dysfunction. [place] Sleepiness Scale is 9. PAST MEDICAL HISTORY: Positive for atrial fibrillation, hypertension, hyperlipidemia, atrial fibrillation status with two cardiac ablations. PAST SURGICAL HISTORY: Hernia repair. FAMILY HISTORY: Heart problems. SOCIAL HISTORY: Negative for smoking or using alcohol. REVIEW OF SYSTEMS: No fevers. No double vision. No recent chest pain. No shortness of breath. No abdominal pain. No bleeding episodes. No blood in the stool or urine. No seizure episodes. No headaches. PHYSICAL EXAM: gentleman without distress. BP 142/71, HR 58, RR 15, height 6 feet and 0.5 inches, weight 265, body mass index 35.4, temperature 98.2, oxygen saturation at room air 97%. Oropharynx extremely low position of soft palate. Mallampati IV. NECK: Supple, no JVD. Thyroid is not palpable. Neck is wide; 18.5 inches in circumference. LUNGS: Clear to percussion and to auscultation. Good air exchange. No wheezing or rhonchi. HEART: S1, S2 regular. No murmurs, gallops, or rubs. ABDOMEN: Obese. Soft and nontender. Bowel sounds are present. No organomegaly appreciated. EXTREMITIES: No clubbing or cyanosis. DROP PRESS HAND: Awake, alert, and oriented X3. Cranial nerves 2 to 7 intact. There is no fasciculation or atrophy. noted. No focal deficits observed. IMPRESSION: 1. Loud snoring, awakenings from sleep with nocturia, extremely low position of soft palate, Mallampati IV, wide neck, 18-1/2 inches in circumference, obstructive sleep apnea-hypopnea syndrome. 2. Obesity, body mass index 35.4. 3. History of atrial fibrillation, status post 2 cardiac ablation procedures. 4. Hypertension. 5. Hyperlipidemia. 6. Status post hernia repair. PLAN: 1. Home sleep apnea for checking patient breathing during sleep. The patient prefers to have a home sleep test. 2. CPAP/BiPAP titration if sleep study confirms obstructive sleep apnea-hypopnea syndrome. 3. Preferable position during sleep on the side. 4. No driving if patient feels any sleepiness. 5. I will see patient for follow up visit to explain results of testing and following plan. Thank you very much for allowing me to participate in the care of your patient. Sincerely, Vini Riojas MD, PhD, FAASM Diplomat of [employer] [facility] [place] / ROSIE: [phone] /
== END ==
LOC: SLEEP 13:34
PROVIDERS: ATTEND Internal Medicine
DX: G47.33 Obstructive sleep apnea (adult) (pediatric) (principal); R35.1 Nocturia; E66.9 Obesity, unspecified; I48.91 Unspecified atrial fibrillation; I10 Essential (primary) hypertension; E78.5 Hyperlipidemia, unspecified; Z98.890 Other specified postprocedural states; Z68.35 Body mass index [BMI] 35.0-35.9, adult
CPT/HCPCS: 99211

== ENCOUNTER → 2024-03-04 | Outpatient (CLI) | payer MEDICARE ==
[2024-03-04 11:00] LABS: HCT 46.6 % (39.6-50.0); HGB 14.9 g/dL (13.0-17.0); MCH 32.2 pg (27.0-32.0); MCV 100.6 FL (80.0-97.0); NRBC Per 100 WBC 0 X 10*3/uL (0.00-0.01); Platelet Count 123 X 10*3/uL (140-440); RBC 4.63 X 10*6/uL (4.40-5.60); RDW 14.4 % (11.5-14.5); WBC 6.24 X 10*3/uL (4.50-10.00)
[2024-03-04 11:13] LABS: Carbon Dioxide 25.2 mmol/L (21.6-31.8); Chloride 107 mmol/L (96-109); Potassium 4.6 mmol/L (3.5-5.5); Sodium 141 mmol/L (135-145)
== END | disposition home or self-care (01) ==
LOC: LABPAT 07:41
PROVIDERS: ATTEND Internal Medicine Clinical Cardiac Electrophysiology
DX: I47.29 Other ventricular tachycardia
CPT/HCPCS: 36415; 80051; 82565; 84520; 85027

== ENCOUNTER 2024-03-10 05:47 | Day surgery (SDC) | payer MEDICARE ==
[2024-03-04 11:39] VITALS: BMI 35.1
[2024-03-10] MEDS: SODIUM CHLORIDE 0.9% 1,000 ML IV ONE (06:30)
[2024-03-10] MEDS: SODIUM CHLORIDE 0.9% 1,000 ML IV SCH (06:30)
--- NOTE | 2024-03-10 10:14 | P.HPCAR ---
History of Present Illness This is Dr. 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 No orthopnea No chest discomfort no syncope since I saw him in the office He remains very tachycardic even at rest Blood pressure 153 100 mmHg pulse rate 150 beats a minute afebrile Breath sounds are equal bilaterally no rhonchi no crackles No murmurs but heart rate is tachycardic rhythm is regular No JVD No lower extremity edema ROS: No fever chills or rigors, no cough, phlegm or expectoration, no nausea, vomiting or diarrhea, no hematuria, dysuria, no musculoskeletal complaints, no strokes or seizures, no skin lesions. REVIEW OF LABS, ECG & MEDICAL DATA White count 6.2, hemoglobin 14.9, platelet count 123,000 Sodium 141, potassium 4.6, BUN 18 creatinine 1.1 Physical Exam Vitals: Vital Signs Temp Pulse Resp BP Pulse Ox 03/10/24 06:45 98.1 F 151 H 16 153/102 93 L Intake and Output 03/09/24 03/10/24 03/10/24 22:59 06:59 14:59 Other: Weight 117.4 kg Past Medical History Past Medical History: Atrial Fibrillation, Hearing Disorder / Deafness, Hyperlipidemia, Hypertension, Skin Disorder Additional Past Medical History / Comment(s): rash since 1963 on lower abdomen and buttock, see Dr Salcedo H&P, gout, History of Any Multi-Drug Resistant Organisms: None Reported Past Surgical History: Cardiac Ablation, Heart Catheterization, Hernia Repair Additional Past Surgical History / Comment(s): "RUPTURED UMBILICUS", CIRCUMCI JHONATAN ADULT, cardioversion x 2, COLONOSCOPY, Past Anesthesia/Blood Transfusion Reactions: No Reported Reaction Smoking Status: Never smoker - Past Family History Mother Family Medical History: No Reported History Additional Family Medical History / Comment(s): . Father Additional Family Medical History / Comment(s): cirrhosis Physical Examination Vital Signs Temp Pulse Resp BP Pulse Ox 03/10/24 06:45 98.1 F 151 H 16 153/102 93 L Intake and Output 03/09/24 03/10/24 03/10/24 22:59 06:59 14:59 Other: Weight 117.4 kg Results Current Medications Generic Name Dose Route Start Last Admin Trade Name Freq PRN Reason Stop Dose Admin Sodium Chloride 1,000 mls @ 50 mls/hr 03/10/24 06:03 03/10/24 06:30 Saline 0.9% IV 04/09/24 06:02 50 mls/hr .Q20H OLYA Administration Lactated Ringer's 1,000 mls @ 20 mls/hr 03/10/24 06:03 Lactated Ringers IV 04/09/24 06:02 .Q24H OLYA Intake and Output 03/09/24 03/10/24 03/10/24 22:59 06:59 14:59 Other: Weight 117.4 kg
[2024-03-10] MEDS ORDERED: FUROSEMIDE 10 MG/ML 2 ML VIAL ONE (10:37)
[2024-03-10] MEDS ORDERED: LIDOCAINE 1% INJ 10MG/ML (20 ML MDV) ONE (10:37)
[2024-03-10] MEDS ORDERED: ePHEDrine 50 MG/ML 1 ML VIAL ONE (10:37)
[2024-03-10] MEDS ORDERED: fentaNYL (PF) 50 MCG/ML 2 ML AMP ONE (10:37)
[2024-03-10] MEDS ORDERED: ceFAZolin 1 GM/50 ML BAG (PMX) ONE (10:37)
[2024-03-10] MEDS ORDERED: ROCURONIUM 10 MG/ML (5 ML VIAL) IV ONE (10:37)
[2024-03-10] MEDS ORDERED: HEPARIN SODIUM,PORCINE 5,000 UNIT/ML 1 ML VIAL ONE (10:37)
[2024-03-10] MEDS ORDERED: ISOPROTERENOL 250 MCG/1.25 ML SYR IV ONE (10:37)
[2024-03-10] MEDS ORDERED: MIDAZOLAM 2 MG/2 ML VIAL ONE (10:37)
[2024-03-10] MEDS ORDERED: PHENYLEPHRINE-0.9% NACL SYG 1,000 MCG/10 ML SYRINGE ONE (10:37)
[2024-03-10] MEDS ORDERED: NEOSTIGMINE 1 MG/ML 10 ML VIAL ONE (10:37)
[2024-03-10] MEDS ORDERED: PROPOFOL 10 MG/ML 20 ML VIAL IV ONE (10:37)
[2024-03-10] MEDS ORDERED: SUCCINYLCHOLINE CHLORIDE 200 MG/10 ML VIAL IV ONE (10:37)
[2024-03-10] MEDS ORDERED: GLYCOPYRROLATE 0.2 MG/ML 2 ML VIAL ONE (10:37)
[2024-03-10] MEDS ORDERED: PHENYLEPHRINE 10 MG/ML VIAL ONE (10:37)
[2024-03-10] MEDS: HEPARIN SODIUM,PORCINE 10,000 UNIT in SODIUM CHLORIDE 0.9% 1,000 ML IRRIGATION ONE (11:00)
[2024-03-10] MEDS: LIDOCAINE 1% INJ 10MG/ML (20 ML MDV) SQ ONE (11:19)
[2024-03-10] MEDS: HEPARIN SOD,PORK IN 0.45% NACL 25,000 UNIT in 0.45% NACL 1 250ML.BAG IV ONE (12:00)
[2024-03-10] MEDS: LACTATED RINGERS 1,000 ML IV ONE (12:22)
[2024-03-10] MEDS: HEPARIN SODIUM (1,000 UNIT/ML) 1,000 UNIT in SODIUM CHLORIDE 0.9% 1,000 ML IRRIGATION ONE (13:00)
[2024-03-10] MEDS ORDERED: ACETAMINOPHEN TAB 325 MG TAB PO PRN (16:19)
--- NOTE | 2024-03-10 16:34 | P.EPPROC ---
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 Written informed consent was obtained prior to the procedure. Procedure performed under general anesthesia. Venous sheaths in the right left femoral veins which was later closed with Vascade and with Perclose and hemostasis achieved at the end of the procedure Mapping and diagnostic catheters were placed in the high right atrium cavotricuspid isthmus lateral RA coronary sinus His bundle area left atrium Left and right transseptal catheterization was performed L8 29//19 mmHg Patient was in an atrial tachycardia cycle length of 202 ms Once normal sinus rhythm was restored with successful ablations, IN interval 190 ms and sinus cycle length 912 ms 3D electroanatomic mapping of the right atrium performed Intracardiac echo performed No left atrial appendage thrombus Large right atrium, large left atrium Very long cavotricuspid isthmus Voltage mapping performed along with activation mapping Reentrant circuit on the free wall of the right atrium between the IVC and SVC. Successful ablation was performed and linear ablation performed from the IVC to the SVC. No change in tachycardia cycle length, secondary circuit Voltage Noted in the cavotricuspid isthmus line that was made previously from the tricuspid annulus to the mid isthmus. This was a very long isthmus. RF ablation was performed and quiescence of signals was obtained. However tachycardia continued, secondary circuit With intracardiac echo and fluoroscopic guidance transseptal catheterization was performed and the Penta ray catheter was placed in the left atrium Very large left atrium with very large pulmonary veins. Voltage mapping as well as activation mapping performed A large Of mai noted between the isolated left superior and the isolated left inferior pulmonary veins and activation map suggested a circuit around the left inferior pulmonary vein outside its ostium. There also appeared to be a roof tachycardia which was later confirmed after ablation of the first reentry around the left inferior pulmonary vein RF ablation was applied along the ridge anterior to the left-sided veins. This resulted in lengthening of the tachycardia and termination of this particular tachycardia with change in the P wave morphology indicating successful termination The residual atrial tachycardia was then once again mapped with the Penta ray and roof tachycardia was clearly identified RF ablation was performed in the left atrial roof. This was a very long roof. Stability was difficult to achieve but finally good contact force and good power achieved. A broad RF line was made resulting in termination of the tachycardia Following that Isopril started and burst stimulation was performed from the proximal coronary sinus and from the distal coronary sinus. No other inducible arrhythmias All catheters were removed heparin was stopped venous sheaths were removed and closure devices applied and the patient was extubated. The patient Toller the procedure well without any acute complications IV Lasix administered once through the procedure. Patient's Mendoza catheter was removed the end of the procedure Plan resume carvedilol 3.125 mg twice daily continue Eliquis stop metoprolol
--- NOTE | 2024-03-10 16:55 | P.EPPROC ---
- EP Procedure Note Electrophysiology Procedure Note: This is a very long procedure primarily on account of her very dilated right atrium, a very long cavotricuspid isthmus and a very long left atrial roof Catheter stability was difficult despite using a stabilizing sheath both in the left atrial roof, tricuspid isthmus and in the mai between the left superior and left inferior pulmonary veins The procedure took longer than usual on account of the sheer size of the left atrium
[2024-03-10] MEDS: ACETAMINOPHEN IV (For NPO) 1,000 MG in EMPTY BAG 1 BAG IVPB ONE (17:30)
[2024-03-10] MEDS ORDERED: DILTIAZEM 125 MG in SODIUM CHLORIDE 0.9% 100 ML IV SCH (17:45)
[2024-03-10] MEDS: COLCHICINE 0.6 MG EACH PO ONE (18:39)
[2024-03-10] MEDS: DEXTROSE 5% IN WATER 250 ML with AMIODARONE 300 MG IV ONE (18:41)
[2024-03-10] MEDS: LACTATED RINGERS 1,000 ML IV SCH (20:53)
[2024-03-10] MEDS: carvediloL 3.125 MG TAB PO SCH (20:54)
[2024-03-10] MEDS: LOSARTAN 50 MG TAB PO SCH (21:03)
[2024-03-10] MEDS: APIXABAN 5 MG TAB PO SCH (21:03)
[2024-03-10] MEDS: PRAVASTATIN SODIUM 80 MG TAB PO SCH (22:36)
[2024-03-11 01:05] LABS: Basophils % (A) 1 %; Eosinophils # (A) 0.1 k/uL (0-0.7); Eosinophils % (A) 1 %; HCT 41.8 % (39.0-53.0); Hypochromasia Moderate; Lymphocytes # (A) 0.8 k/uL (1.0-4.8); Lymphocytes % (A) 14 %; MCH 31.3 pg (25.0-35.0); MCHC 31.1 g/dL (31.0-37.0); MCV 100.7 fL (80.0-100.0); Macrocytosis Slight; Mean Platelet Volume 8.8; Monocytes # (A) 0.4 k/uL (0-1.0); Monocytes % (A) 7 %; Neutrophils # (A) 4.5 k/uL (1.3-7.7); Neutrophils % (A) 75 %; Platelet Count 118 k/uL (150-450); RBC 4.15 m/uL (4.30-5.90); RDW 13.8 % (11.5-15.5); WBC 5.9 k/uL (3.8-10.6)
[2024-03-11 04:17] LABS: ALT 21 U/L (4-49); AST 40 U/L (17-59); African American GFR (CKD) >90 (>60 ml/min/1.73 sqM); Albumin 3.1 g/dL (3.5-5.0); Albumin/Globulin Ratio 1.2; Alkaline Phosphatase 41 U/L (38-126); Anion Gap 6 mmol/L; Blood Urea Nitrogen 19 mg/dL (9-20); Calcium 8.4 mg/dL (8.4-10.2); Carbon Dioxide 26 mmol/L (22-30); Chloride 108 mmol/L (98-107); Globulin 2.5 g/dL; Glucose 115 mg/dL (74-99); Non-African American GFR(CKD) 80 (>60 ml/min/1.73 sqM); Sodium 140 mmol/L (137-145); Total Bilirubin 1.1 mg/dL (0.2-1.3); Total Protein 5.6 g/dL (6.3-8.2)
[2024-03-11 07:29] VITALS: BP 129/83; PULSE 82; RESP 20; TEMP 97.8
[2024-03-11] MEDS: MAGNESIUM OXIDE 400 MG TAB PO SCH (08:26)
[2024-03-11] MEDS: COLCHICINE 0.6 MG EACH PO SCH (08:26)
--- NOTE | 2024-03-11 11:45 | P.DS ---
Providers Attending physician: Fredrick Salcedo Primary care physician: [facility] Course: Patient is resting comfortably in the chair No dizziness lightheadedness no palpitations His groins of healed well no hematoma no bruising no swelling Blood pressure 129/83 mmHg pulse rate in the 70s and 80s afebrile Breath sounds are reduced bilaterally with there are no rhonchi no crackles Heart sounds S1-S2 normal no rub No hematoma in either groins Impression atrial tachycardia with RVR refractory to treatment and rate control medications, very symptomatic with shortness of breath with minimal exertion Status post ablation of the anterior mai, in between the left superior and left inferior pulmonary veins for treatment of reentry around the left inferior pulmonary vein The intravenous distance between the left superior and left inferior pulmonary veins was about 1 cm Successful ablation of left atrial roof tachycardia Very long roof in the LA but successful ablation Ablation of free wall right atrium, RF ablation in between the SVC and IVC for management of reentry. There was scarring along the free wall of the RA Ablation of cavotricuspid isthmus Postoperative burst of atrial tachycardia that is brief. It appeared like irregular atrial tachycardia and was self-limiting Twelve-lead EKG normal DE interval is mildly prolonged Brode fractionated P waves Plan Resume anticoagulation and go back on Coreg Stop metoprolol Continue all other medications follow-up in a week Plan - Discharge Summary Discharge Rx Participant: Yes New Discharge Prescriptions: New carvediloL [Coreg] 3.125 mg PO BID #90 tablet Discontinued Metoprolol Succinate (ER) [Toprol Xl] 50 mg PO DAILY No Action Multivitamins, Thera [Multivitamin (formulary)] 1 tab PO DAILY Apixaban [Eliquis] 5 mg PO BID #180 Calcium/Vitamin D3(Unknown) 1 tab PO DAILY Losartan [Cozaar] 50 mg PO BID Magnesium Oxide [Magnesium] 500 mg PO DAILY Pravastatin Sodium [Pravachol] 80 mg PO HS Inulin/Chromium Picolinate [Fiber Gummies Chew] 1 tab PO DAILY Discharge Medication List Multivitamins, Thera [Multivitamin (formulary)] 1 tab PO DAILY 12/01/16 [History] Apixaban [Eliquis] 5 mg PO BID #180 12/06/16 [Rx] Calcium/Vitamin D3(Unknown) 1 tab PO DAILY 06/17/20 [History] Inulin/Chromium Picolinate [Fiber Gummies Chew] 1 tab PO DAILY 03/04/24 [History] Losartan [Cozaar] 50 mg PO BID 03/04/24 [History] Magnesium Oxide [Magnesium] 500 mg PO DAILY 03/04/24 [History] Pravastatin Sodium [Pravachol] 80 mg PO HS 03/04/24 [History] carvediloL [Coreg] 3.125 mg PO BID #90 tablet 03/10/24 [Rx] Follow up Appointment(s)/Referral(s): Fredrick Salcedo MD [STAFF PHYSICIAN] - 03/18/24 9:30 am Patient Instructions/Handouts: How to Use an Incentive Spirometer (DC), Cardiac Ablation (DC) Activity/Diet/Wound Care/Special Instructions: Post EP study - Ablation instructions 1. Keep access sites dry for 2 days. 2. No heavy lifting or straining for 2 days. 3. Avoid bending the hips repeatedly for 2 days. 4. You may go up and down stairs slowly Call if the following is noted 1. Bleeding, increasing swelling or pain at the access sites. 2. Increasing chest discomfort, especially upon taking a deep breath. 3. Increasing shortness of breath, at rest or with exertion. 4. Undue cough / phlegm 5. Difficulty or pain while swallowing. 6. Pain or change in color in the extremities. 7. Fever, chills, rigors. 8. Increasing headache or neurologic symptoms. 9. Dizziness, fainting, palpitations Stop metoprolol Resume carvedilol 3.15 mg twice daily as before Continue Eliquis and other medications colcry 0.6mg x2 weeks
== END 2024-03-11 12:11 | disposition home or self-care (01) ==
LOC: CATHEP 05:47 → 6NMEDSUR 15:56 → CATHEP 03-11 12:11
PROVIDERS: ATTEND Internal Medicine Clinical Cardiac Electrophysiology
CPT/HCPCS: 80053; 84443; 85025; 86850; 86900; 86901; 93005; 93462; 93623; 93653; 93655; 93662